=== PATIENT | male | born 1940 | race Caucasian/White ===

== ENCOUNTER → 2017-12-04 11:32 | Outpatient (CLI) | payer MEDICARE, BC, SELFPAY ==
[2017-12-04 12:32] LABS: Add Manual Diff / Slide Review NO; Basophils Percent Auto 1.2 % (0-2); Eosinophils Percent Auto 2.1 % (2-4); Hemoglobin 13.4 g/dL (13.5-17.5); Mean Corpuscular HGB Conc 33.5 % (30-36); Mean Corpuscular Hemoglobin 29.3 PG (26-34); Mean Corpuscular Volume 87.4 fL (80-100); Monocytes Percent Auto 8.1 % (3-14); Neutrophils Absolute Auto 5100 /uL (3000-5900); Neutrophils Percent Auto 57.6 % (50-75); Platelet Count 193 X10^3/uL (150-400); Red Blood Cell Count 4.58 X10^6/uL (4.5-5.9); White Blood Cell Count 8.9 X10^3/uL (4.5-11.0)
[2017-12-04 12:46] LABS: BUN Creatinine Ratio 20.8 (6-22); Blood Urea Nitrogen 27 mg/dL (9-20); Calcium 8.9 mg/dL (8.4-10.2); Carbon Dioxide 30 mmol/L (22-32); Chloride 99 mmol/L (98-107); Estimated Glomerular Filt Rate 53.7 mL/min (>60); Glucose 102 mg/dL (80-110); HEMOLYSIS < 15 (0-50); Sodium 139 mmol/L (137-145)
== END ==
PROVIDERS: PCP Family Medicine; Visit Provider Orthopaedic Surgery Orthopaedic Surgery of the Spine
DX: Z01.818 Encounter for other preprocedural examination (principal); M51.36 Other intervertebral disc degeneration, lumbar region
CPT/HCPCS: 36415; 80048; 85025; 93005

== ENCOUNTER 2017-12-29 10:15 | Inpatient (IN) | payer MEDICARE, BC, SELFPAY ==
[2017-12-16 08:39] VITALS: BMI 30.1
[2017-12-29] VITALS (13 sets, daily range): BP systolic 116–154; BP diastolic 55–87; PULSE 61–107; RESP 8–16; TEMP 35.9–36.7; O2SAT 93–99; BMI 30.7
[2017-12-29] MEDS: LACTATED RINGERS 1,000 ML 42 ML IV ×3 (11:30→15:26)
--- NOTE | 2017-12-29 12:22 | PM.PREOP ---
Pre-operative Note Interval Note Pre-op Check: History & Physical Reviewed by Physician, Exam Performed and History & Physical exam performed today
[2017-12-29] MEDS: CEFAZOLIN 2 GM/100 ML FROZ.PIGGY IV ×2 (12:45→20:38)
--- NOTE | 2017-12-29 13:27 | SUR.OPER ---
Prone on spine table, head in foam head support, padded chest and pelvic supports, gel pad at knees, lower legs supported by pillows; nipples, genitalia and toes free of pressure, arms secured on foam padded arm boards at <90 degrees abduction. Tape over blanket at thigh secured to table.
[2017-12-29] MEDS: BUPIVACAINE LIPOSOME 266 MG/20 ML VIAL INJ (13:33)
[2017-12-29] MEDS: BUPIVACAINE 0.25% W/ EPI 50 ML VIAL INJ (13:35)
[2017-12-29] MEDS: ACETAMINOPHEN IV 1,000 MG/100 ML VIAL 400 MG IV (15:22)
--- NOTE | 2017-12-29 15:58 | DI.RAD.S_ITS ---
PROCEDURE: XR LUMBAR SPINE 2-3V INDICATIONS: L3-4, L4-5 TLIF TECHNIQUE: 2 views of the lumbar spine were acquired. COMPARISON: [facility] ZAHIRA Price, XR LUMBAR SPINE 2 OR 3 VIEWS, 08/14/2017, 10:06. FINDINGS: Bones: 5 [id number] vertebrae are present, previously documented. There is normal bony alignment established after placement of bilateral transvers pedicle screws and vertical fixation rods from L3-L5, with interbody disc prosthesis at L3-4 and L4-5. No vertebral body compression fractures. No suspicious bony lesions. Soft tissues: Overlying bowel gas pattern is normal. No suspicious soft tissue calcifications. IMPRESSION: Normal alignment established after operative fixation from L3-L5 with interbody disc prosthesis placement. Dictated by: Savage Stevenson M.D. on 12/29/2017 at 16:35 Approved by: Savage Stevenson M.D. on 12/29/2017 at 16:37
--- NOTE | 2017-12-29 16:20 | PM.OP.1 ---
Operative Date/Time/Diagnoses - Date of procedure: 12/29/17 Time of procedure: 13:00 Pre-op diagnosis: 1. L3-4, L4-5 spondylolisthesis 2. L3-4, L4-5, L5-S1 spinal stenosis 3. L3-4, L4-5 spondylosis with radiculopathy Post-op diagnosis: same Procedure & Clinicians Procedure: 1. L3-4, L4-5 Postero-lateral and posterior interbody fusion 2. L3-4, L4-5 interbody cage placement. 3. L3-4, L4-5 decompressive laminectomy with bilateral facetecomies 4. L3-4, L4-5 Posterior segmental instrumentation 5. L5-S1 left hemilaminectomy 6. [place] of bone marrow from iliac crest 7. Utilization of microsurgical technique and operating microscope Same procedure as scheduled: Yes Indications: Patient has been having chronic back pain and worsening lumbar radiculopathy. Patient failed multiple conservative management with worsening pain weakness and numbness in her lower extremity. Patient has been having difficulty performing activity of daily living. After discussing risks benefits of treatment options, patient elected proceed with surgery. Surgeon: Claudia Mcdaniels Gear Setter: Lorraine Najera Click Yes if Unassisted: No Anesthesia Type: General Operative Notes Closure Type: primary Specimen(s): none sent Implants & Drains: Globus revolve screws, caliber cage Applied: catheter Estimated Blood Loss (mL): 100 Blood products transfused: none Procedure in detail: Patient was seen in the preoperative area. Risks and benefits of the surgery was discussed with the patient. Informed consent was obtained from the patient and placed in the chart. Surgical site was marked. Patient was taken to the operative room. General anesthesia was administered. Prophylactic antibiotic was given to the patient less than 30 min before the incision was made. Patient was placed into a prone position on the Nabil table. Patient's back was then prepped and draped in the sterile fashion. Time-out was performed at this time. Using AP and lateral C-arm imaging the interval between L3-4, L4-5 was identified and marked on patient's back. A 2 inch incision 2 in from midline was made on the left side first. The fascia was incised in line with skin incision. Globus MARS retractors was placed inside the incision and docked onto the L3and L4 lamina. Using microsurgical technique and operating microscope, a L3 and L4 laminectomy and L3-4, L4-5 facetectomy was performed using a Kerrison rongeur. The disc space at L4-5, L5-S1 was identified. And a total diskectomy was performed at L3-4, L4-51 level. The endplates were decorticated using a rasp and shaver. The total diskectomy and decortication was performed at L3-4, L4-5 level in order to to accomplish a L3-4, L4-5 fusion. The local bone from the laminectomy and facetectomy was saved for local bone grafting. After the total diskectomy and decortication was completed, Globus viacell bone graft material was combined with local bone that was harvested earlier. At this time, a separate skin is incision was made over the iliac crest. A Jamshidi needle was inserted into the iliac crest through a separate skin incision. 5 cc of bone marrow aspiration was obtained through the separate skin incision using a Jamshidi needle from the iliac crest. The bone marrow aspiration was combined with local bone and the via cell bone grafting material. The bone grafting material was placed into the L3-4, L4-5 interbody space along with two cages, one expandable cage at each level. The cages were expanded to their maximum height using the torque limiting screwdriver. The mars retractor at this time was retarded over the L5 lamina on the right side. Using microsurgical technique and operative microscope a hemilaminectomy was performed at L5 level. The ligamentum flavum was resected the site of the hemilaminectomy. The epidural space and the lateral recess at L5-S1 level was fully decompressed after the hemilaminectomy was completed. At this time a mirror image incision was made on the right side. The fascia was incised in line with the skin incision. Globus MARS retractor was inserted and docked onto the L3-4, L4-5 posterolateral gutter. Using the power drill, posterior-lateral decortication was performed at L3-4, L4-5 level until bleeding cortical bone was identified. The remaining bone grafting material was placed into the L3-4, L4-5 posterior lateral gutter he order to accomplish posterolateral fusion at the L3-4, L4-5 levels. Using the double C-arm technique, pedicle screws were placed into the L3, L4, L5 pedicles bilaterally. This was done by placing the Jamshidi needle into the pedicles, then placing the guidewires over the Jamshidi needle, and finally placing the cannulated screws over the guidewires bilaterally. After the pedicle screws were placed, 2 titanium rods was locked into the heads of the pedicle screws using locking caps and torque limiting screwdriver. Total 6 pedicles screws were placed. After all the hardware was placed, and confirmed with AP and lateral C-arm imaging, the wound was then irrigated with sterile normal saline and packed with Ray-Roberto Carlos gauze for 3 min to accomplish hemostasis. After the gauze was removed the deep fascia was closed with #1 Vicryl suture. The subcutaneous layer was closed with 2-0 Vicryl. The skin was closed with skin loren. Patient tolerated the procedure well. There were no complications. Complications: none Condition: stable Disposition: Acute Care Plan for aftercare: Admit to inpatient hospital
[2017-12-29] MEDS: fentaNYL 100 MCG/2 ML INJ 50 MCG IV ×2 (16:36→16:52)
[2017-12-29] MEDS: HYDROMORPHONE 2 MG INJ 0.5 MG IV ×2 (16:42→17:04)
--- NOTE | 2017-12-29 17:13 | SUR.PHASEI ---
REPORT CALLED TO NOELLE MARTELL ON ACUTE CARE FLOOR. PT IN STABLE CONDITION, VSS. IV SITE CLEAR. PT HAS EQUAL STRENGTH IN ALL FOUR EXTREMITIES, WARM TO TOUCH, +PULSES, CAP REFILL WNL. PT DENIES ANY NUMBNESS OR TINGLING AT THIS TIME. CATHETER SECURE AND DRAINING CLEAR YELLOW URINE. PT TOLERATING ICE CHIPS WITHOUT ANY DIFFICULTLY. PT DENIES ANY NAUSEA. PT LAYING FLAT IN BED WITH EYES CLOSED, EASILY AROUSABLE TO VOICE. PT APPEARS COMFORTABLE AT THIS TIME.
--- NOTE | 2017-12-29 17:30 | SUR.PHASEI ---
PT TRANSFERED TO ACUTE CARE FLOOR IN STABLE CONDITION, VSS. PT TALKING TO STAFF DURING TRANSPORT. AT BEDSIDE UPON ARRIVAL TO ROOM. BEDSIDE REPORT GIVEN TO NOELLE MARTELL. DRSG OBSERVED TO BE C/D/I. PT TRANSFERED TO [facility], IN STABLE CONDITION.
[2017-12-29] MEDS: SODIUM CHLORIDE 0.9% 1,000 ML 100 ML IV (18:25)
[2017-12-29] MEDS: hydrOXYzine pamoate 25 MG CAPSULE PO (19:05)
[2017-12-29] MEDS: OXYCODONE IR 5 MG TABLET 10 MG PO (19:05)
[2017-12-29] MEDS: ONDANSETRON 4 MG/2 ML INJ IV (20:36)
[2017-12-29] MEDS: HYDROMORPHONE 0.5 MG INJ IV ×2 (20:42→23:44)
[2017-12-30] MEDS: LORazepam 2 MG/ML SYRINGE 0.5 MG IV (00:46)
[2017-12-30] MEDS: HYDROMORPHONE 0.5 MG INJ IV ×3 (02:43→07:35)
[2017-12-30] MEDS: ONDANSETRON 4 MG/2 ML INJ IV ×2 (02:44→06:24)
[2017-12-30] MEDS: CEFAZOLIN 2 GM/100 ML FROZ.PIGGY IV (04:09)
[2017-12-30] MEDS: SODIUM CHLORIDE 0.9% 1,000 ML 100 ML IV (04:09)
[2017-12-30 04:10] VITALS: BP 119/67; PULSE 83; RESP 12; TEMP 36.7; O2SAT 100
[2017-12-30 06:12] LABS: Hematocrit 33.5 % (41-53); Hemoglobin 11.1 g/dL (13.5-17.5)
[2017-12-30 07:20] VITALS: BP 115/58; PULSE 71; RESP 17; TEMP 36.6; O2SAT 99
[2017-12-30] MEDS: DOCUSATE 100 MG CAPSULE PO ×2 (09:20→20:16)
[2017-12-30] MEDS: OXYCODONE IR 5 MG TABLET 10 MG PO ×4 (09:20→20:16)
[2017-12-30] MEDS: hydrOXYzine pamoate 25 MG CAPSULE PO (09:20)
[2017-12-30] MEDS: ACETAMINOPHEN 325 MG TABLET 650 MG PO ×2 (09:22→15:20)
--- NOTE | 2017-12-30 09:22 | P.PN_ITS ---
Subjective Date Patient Seen: 12/30/17 Time Patient Seen: 07:21 Interval history: POD #1 status post L3-L5 TLIF, and L5-S1 left hemilaminectomy. Patient's pain is well controlled with oxycodone. He has not gotten up out of bed yet. He has not worked with physical therapy yet. He has notes a history of prostate issues and is taking Flomax 0.4 mg daily. Still has Da Silva in place. Did have some nausea and vomiting last night that was alleviated with Zofran. Exam Vital Signs (past 8 hours): - 12/30/17 04:10 12/30/17 07:20 Temperature 98.1 F 97.9 F Pulse Rate 83 71 Respiratory Rate 12 17 Blood Pressure 119/67 115/58 L Pulse Oximetry 100 99 Oxygen Delivery Method Nasal Cannula Oxygen Flow Rate 1 Narrative Exam Narrative: Patient is sitting up in bed in no acute distress. Is alert and oriented x3. Calves are soft, compressible, nontender bilaterally. Pulses are symmetrical. He is able to actively dorsiflex and plantar flex. Objective Labs Result Diagrams: 12/30/17 05:59 Labs: Laboratory Results - last 24 hr 12/30/17 05:59 Hgb 11.1 L Hct 33.5 L Assessment & Plan Post-op (1) S/P lumbar fusion: Current Visit: Yes Status: Acute (2) Benign prostatic hyperplasia: Onset Date: 03/05/16 Current Visit: No Status: None (3) Essential hypertension: Onset Date: 09/26/17 Current Visit: No Status: None Postoperative Procedures Operation Date: 12/29/17 12:15 Actual Procedures Side Surgeon p L3-4 Right Hemilaminectomy, L3-4, L4-5 TLIF w/Posterior Instru Claudia Mcdaniels MD POD #1 status post L3-L5 TLIF, and L5-S1 left hemilaminectomy. Continue current pain control. Will get up and mobilize with physical therapy today. Once more active and mobile will DC Da Silva. Plan will be to discharge home in next 1-2 days once mobilizing safely with adequate pain control. Time Spent With Patient less than 15 minutes Quality VTE Deep Vein Thrombosis/Pulmonary Embolism Present on Admission: No
--- NOTE | 2017-12-30 09:30 | PT.IIE ---
Current Diagnoses Essential (primary) hypertension (12/29/17) Other spondylosis with radiculopathy, lumbar region (12/29/17) Benign prostatic hyperplasia without lower urinary tract symptoms (12/29/17) Arthrodesis status (12/29/17) Surgery Performed Operation Date: 12/29/17 12:15 Actual Procedures p L3-4 Right Hemilaminectomy, L3-4, L4-5 TLIF w/Posterior Angie Mcdaniels MD Surgical History (Last Updated 12/16/17 @ 09:30 by Ariana Meyers RN) History of corneal transplant (Acute) History of ear surgery (Acute) Hx of appendectomy (Acute) Hx of arthroscopy of shoulder (Acute) Hx of bilateral inguinal hernia repair (Acute) Hx of tonsillectomy (Acute) Medical History (Last Updated 12/16/17 @ 09:30 by Ariana Meyers RN) Eczema (Acute) HTN (hypertension) (Acute) LBBB (left bundle branch block) (Acute) Nocturia (Acute) 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, lumbar region (Acute) RBBB (right bundle branch block) (Acute) Spinal stenosis of lumbar region (Acute) Physical Therapy Inpatient Evaluation/Re-Eval M1 PT/OT-IP Prior Functional Status Start: 12/30/17 12:35 Freq: NEEDED Status: Active Protocol: Document 12/30/17 09:30 AB (Rec: 12/30/17 12:46 AB [email or web address]) Medical Review Prior Functional Status Medical History Reviewed Yes Mobility and Gait pt stated that he is independent with all mobilities and ambulation without AD Social History Household Members spouse Living Arrangements House Number of Floors (Floors) 3 or More Floors Number of Stairs To Enter/Railing? has 6 steps to enter with R rail ascending; pt stays on main level of the house Home Environment Standard Height Toilet Walk in Shower Home Equipment Front Wheel Walker Straight Cane Grab Bars Near Toilet Grab Bars In Shower Employment Status Retired M2 PT-IP Current Condition Start: 12/30/17 12:35 Freq: NEEDED Status: Active Protocol: Document 12/30/17 09:30 AB (Rec: 12/30/17 12:46 AB [email or web address]) Physical Therapy Current Condition Current Condition Evaluation Date 12/30/17 Treatment Diagnosis s/p L3-4, L4-5 TLIF with lami; difficulties in walking Onset Date 12/29/17 Precautions Lumbar Precautions Log Roll No Twisting Limit Bending Lifting Restriction of 10 lbs Gait Belt above Incisional Area M3 PT-IP Subjective Start: 12/30/17 12:35 Freq: NEEDED Status: Active Protocol: Document 12/30/17 09:30 AB (Rec: 12/30/17 12:46 AB [email or web address]) Subjective Physical Therapy Visit Type Type Initial Evaluation Visit Start Time 09:30 Visit Stop Time 10:03 Total Visit Minutes 33 Number of FIRER DIESEL LOCOMOTIVE Visits 0 Physical Therapy Visit Comments Patient Comments pt agreeable to do therapy Therapy Pain Assessment Pain When Pain Assessed At Rest Pain Present Pain Present Pain Reported Location Back Intensity 5 Scale Used Numeric (1 - 10) Pain Management Techniques Re-positioning Timing of Activity with Medications M4 PT-IP Mobility and Gait Start: 12/30/17 12:35 Freq: NEEDED Status: Active Protocol: Document 12/30/17 09:30 AB (Rec: 12/30/17 12:46 AB [email or web address]) PT-Bed Mobility Assessment Rolling Type of Rolling Log Rolling Level of Assist Standby Assistance Supine to Sit Supine to Sit Standby Assistance Scooting Scooting to Edge of Bed Standby Assistance PT-Transfer Assessment Sit to and From Stand Sit to and from Stand Contact Guard Assistance Equipment Transfer Assistive Device Gait Belt Front Wheeled Walker Transfers Transfer Destination Chair Gait Assessment Gait Gait Assistance Required: Contact Guard Assist Distance (Feet) (feet) 30 Able to Maintain Weight Bearing Status Yes During Gait Assistive Devices Assistive Device Gait Belt Orthotic/Prosthetic Devices or Brace: No Gait Deviations General Gait Pattern Antalgic Decreased Stride Length Decreased Feet Clearance Factors Limiting Gait Function Factors Limiting Gait Function Decreased Activity Tolerance Decreased Strength Limited Range of Motion Pain Poor Balance Poor Safety Awareness Comments Gait Comments pt requires cues for all tasks M5 PT-IP Objective Assessments Start: 12/30/17 12:35 Freq: NEEDED Status: Active Protocol: Document 12/30/17 09:30 AB (Rec: 12/30/17 12:46 AB [email or web address]) Orientation Orientation/Cognition Level of Alertness Alert Orientation Name Age Birthday Month Date Year Day of Week Place Situation Safety Awareness Decreased Safety Awareness Memory Description Short Term Impaired Roofer Applicator Impaired Strength Lower Extremity Strength Assessment Bilaterally Impaired Comments Strength Comments RLE: 3+/5 LLE 4-/5 M6 PT-IP Treatment Start: 12/30/17 12:35 Freq: NEEDED Status: Active Protocol: Document 12/30/17 09:30 AB (Rec: 12/30/17 12:46 AB [email or web address]) Physical Therapy Treatment Education Education Provided Precautions Weight Bearing Status Post-Op Packet Safety M7 PT-IP Assessment and Plan Start: 12/30/17 12:35 Freq: NEEDED Status: Active Protocol: Document 12/30/17 09:30 AB (Rec: 12/30/17 12:46 AB [email or web address]) PT Summary Assessment and Plan Potential Rehabilitation Potential Good Status of Condition at Evaluation Evolving Summary Impairments Pain ROM Strength Balance Sensation Tone Cognition Bed Mobility Transfers Gait Activity Tolerance Assessment Summary pt requiring one person assist with mobility but plans to have spouse to assist him at home. will conduct caregiver training when appropriate and stair climbing training will also be conducted prior to d/c . Goals Bed Mobility Goal Standby Assistance Transfer Goal Standby Assistance Gait Goal Standby Assistance Gait Distance 150 Days to Meet Goals 3 Frequency of Treatment Frequency Of Treatment Twice a Day Treatment Plan Physical Therapy Treatment Plan Bed Mobility Training Transfer Training Gait Training Therapeutic Exercise Balance Retraining Post Op Education Discharge Planning Hot or Cold Pack Neuromuscular Re-ed Coordination Retraining Manual Therapy Other Recommendations and Next Treatment bed mobility, ambulation Focus Recommendations To Nursing Amount of Assist Needed 1 Person Assist Discharge Recommendations PT Discharge Recommendations Home with Assistance
--- NOTE | 2017-12-30 10:40 | PC.NURSE ---
Day shift: OOB w/ OT. Hardest part of that was getting OOB. Pain controlled w/ PO meds now per AUG. He did not want any IV Dilaudid for pain 10/07. He also does not want the Da Silva removed yet. Sitting in chair with alarm. He agrees to not get OOB w/o help from staff. Call light in reach.
[2017-12-30 11:15] VITALS: BP 139/70; PULSE 89; RESP 18; TEMP 36.7; O2SAT 98
--- NOTE | 2017-12-30 11:26 | PC.NURSE ---
Day shift: Pt eating cookie and drinking milk. Tolerating well. No report of nausea. Pt did take PO pain meds this AM as well. Pt did have nausea and emesis last night but not present today at this time. Call light in reach.
--- NOTE | 2017-12-30 12:49 | PC.NURSE ---
Day shift; Da Silva removed at 1245. Pt is now SL. Advanced to reg diet for dinner. No nausea at this time. Pain controlled per AUG. Pt also ambulated karlaung Ashish RN station w/ this health technical writer and tolerated well. Spo2 remains >95% RA. Will cont to monitor. Back in bed. Bed alarm on and call light in reach.
--- NOTE | 2017-12-30 13:01 | OT.IP.EVAL ---
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, lumbar region (Acute) RBBB (right bundle branch block) (Acute) Spinal stenosis of lumbar region (Acute) Surgical History (Last Updated 12/16/17 @ 09:30 by Ariana Meyers RN) History of corneal transplant (Acute) History of ear surgery (Acute) Hx of appendectomy (Acute) Hx of arthroscopy of shoulder (Acute) Hx of bilateral inguinal hernia repair (Acute) Hx of tonsillectomy (Acute) Occupational Therapy Inpatient Evaluation/Re-Eval M1 PT/OT-IP Prior Functional Status Start: 12/30/17 12:35 Freq: NEEDED Status: Active Protocol: Document 12/30/17 09:30 AB (Rec: 12/30/17 12:46 AB [id number]) Medical Review Prior Functional Status Medical History Reviewed Yes Mobility and Gait pt stated that he is independent with all mobilities and ambulation without AD Social History Household Members spouse Living Arrangements House Number of Floors (Floors) 3 or More Floors Number of Stairs To Enter/Railing? has 6 steps to enter with R rail ascending; pt stays on main level of the house Home Environment Standard Height Toilet Walk in Shower Home Equipment Front Wheel Walker Straight Cane Grab Bars Near Toilet Grab Bars In Shower Employment Status Retired M1 PT/OT-IP Prior Functional Status Start: 12/30/17 12:36 Freq: NEEDED Status: Active Protocol: Document 12/30/17 12:36 [facility] (Rec: 12/30/17 13:01 [facility] [id number]) Medical Review Prior Functional Status Medical History Reviewed Yes Diet/Fluid Consistency Regular Thin Liquids Mobility and Gait Per pt was completely independent with all ambulation and did not use any devices. Activities of Daily Living and IADL's Pt's pays the bills, otherwise was completely independent. Social History Household Members spouse Living Arrangements House Number of Floors (Floors) 3 or More Floors Number of Stairs To Enter/Railing? 6 and right hand rail. Home Environment Standard Height Toilet Walk in Shower Home Equipment Front Wheel Walker Straight Cane Shower Seat without Backrest Grab Bars Near Toilet Grab Bars In Shower Employment Status Retired Additional Social History Comment Pt able to stay on the main level after getting into the house. M2 OT-IP Current Condition Start: 12/30/17 12:36 Freq: Status: Active Protocol: Document 12/30/17 12:36 [facility] (Rec: 12/30/17 13:01 [facility] [id number]) Occupational Therapy Current Condition Current Condition Evaluation Date 12/30/17 Treatment Diagnosis Lumbar Spinal Stenosis Post Operative Precautions Lumbar Precautions Log Roll No Twisting Limit Bending Lifting Restriction of 10 lbs Gait Belt above Incisional Area Weight Bearing Status Weight Bearing Status Weight Bear as Tolerated M3 OT- IP Subjective and Pain Start: 12/30/17 12:36 Freq: Status: Active Protocol: Document 12/30/17 12:36 [facility] (Rec: 12/30/17 13:01 [facility] [id number]) OT- Subjective Occupational Therapy Visit Type Type Initial Evaluation Visit Start Time 09:30 Visit Stop Time 10:25 Total Visit Minutes 55 Occupational Therapy Visit Comments Patient/Caregiver Goals Pt wanting to go home when medically stable. OT Pain Assessment Pain When Pain Assessed At Rest Pain Present Pain Present Pain Reported Location Back Intensity 6 Scale Used Numeric (1 - 10) Management Techniques Re-positioning Timing of Activity with Medications M4 OT- IP ADL's Start: 12/30/17 12:36 Freq: Status: Active Protocol: Document 12/30/17 12:36 [facility] (Rec: 12/30/17 13:01 [facility] [id number]) OT AQM-[place]jam[place] General Evaluation Self-Feeding Ability Independent OT ADL-Dressing General Eval Lower Body Dressing Ability Maximum Assistance Areas Needing Assistance Socks Comments OT Dressing Comments Pt educated on AED for LB dressing , use of sock aid to minerva/doff socks with instructions. Instructed pt to use optical engineering manager to minerva right LLE first and get it out last as he has more trouble with his right side. OT ADL-Toileting Comments OT Toileting Comments Educated to stand to wipe for pericare needs. Pt has grab bar next to the toilet. OT ADL-Bathing Comments OT Bathing Comments Not at this time, to attempt tomorrow if appropriate. M6 OT- IP Functional Cognition Start: 12/30/17 12:36 Freq: Status: Active Protocol: Document 12/30/17 12:36 [facility] (Rec: 12/30/17 13:01 [facility] [id number]) Cognitive Factors Limiting Selfcare Function Cognitive Ability Level of Alertness Alert Confusional State Drowsy Patient Orientation Name Year Place Situation Attention Span Ability Capable of Focused Attention Unable to Sustain Attention Ability to Follow Commands Able to Follow One Step Commands with Increased Time Able to Follow One Step Commands with Repetition Memory Description Immediate Impaired Short Term Impaired Safety Awareness Decreased Recall of Precautions Decreased Ability to Apply Precautions Underestimates Need for Assistance Cognitive Comments Cognitive Assessment Comments Pt having diffculty to recall back precautions and needing repetition over and over, in addition visual demonstration. At the end of the session , pt able to recall all back precautions. M7 OT- IP Mobility and Balance Start: 12/30/17 12:36 Freq: Status: Active Protocol: Document 12/30/17 12:36 [facility] (Rec: 12/30/17 13:01 [facility] [id number]) OT- Bed Mobility Assessment Rolling Type of Rolling Roll to Right Supine to Sit Supine to Sit Assist Contact Guard Assistance OT-Transfer Assessment Sit to and From Stand Sit to and from Stand Contact Guard Assistance Transfers Transfer Ability Contact Guard Assistance Technique Transfer Destination Bed Chair Transfer Technique Stand Step Pivot Devices Transfer Assistive Devices Gait Belt Front Wheeled Walker Comments Mobility Comments CGA for balance and vc for safety to push up from bed and reach back with hands to armrests before sitting. OT- Balance Assessment Sitting Balance and Reactions Static Sitting Balance Ability Normal Dynamic Sitting Balance Ability Normal Standing Balance and Reactions Static Standing Balance Ability Good M8 OT- IP Objective Assessments Start: 12/30/17 12:36 Freq: Status: Active Protocol: Document 12/30/17 12:36 [facility] (Rec: 12/30/17 13:01 [facility] [id number]) OT Strength Comments Strength Comments BUE 5/5 OT-Muscle Tone Assessment Muscle Tone WNL Yes M9 OT- IP Assessment and Plan Start: 12/30/17 12:36 Freq: Status: Active Protocol: Document 12/30/17 12:36 [facility] (Rec: 12/30/17 13:01 [facility] [id number]) OT Summary Assessment and Plan Potential Rehabilitation Potential Excellent Analytic Complexity at Evaluation Low Summary OT Impairments Pain Balance Functional Cognition Functional Mobility Dressing Toileting Bathing Toilet Transfers Shower Transfers Progress Towards Goals Slow Progress due to Pain Slow Progress due to Cognition Assessment Summary Pt low complexity and main barriers are steps, decreased STM, and that will not be able to do any heavy lifting. Pt looking to go home when medically stable. Goals Grooming Goal Independent Dressing Goal Standby Assistance Toileting Goal Independent Bathing Goal Standby Assistance Toilet Transfer Goal Independent Shower Transfer Goal Standby Assistance Patient/Caregiver Education Goal Demonstrate Post-Op Precautions Caregiver Independent Assisting Patient Days to Meet Goals 3 Frequency of Treatment Frequency Of Treatment Once a Day Treatment Plan OT Treatment Plan ADL Training Functional Cognition Training Functional Mobility Patient/Family Education Discharge Planning Discharge Recommendations OT Discharge Recommendations Home
--- NOTE | 2017-12-30 13:29 | CM.DANOTE ---
Discharge Planning/Care Management DCP: assessment: Case received, EMR reviewed and met with pt this morning. Introduced self and role. Pt is a 77 year old female who admitted yesterday for a planned spinal surgery. Surgeon: Dr. Mcdaniels Payer: Medicare and [facility]. Discussed case in [facility] team rounds: RN coordinator noted that pt was on bedrest initially due to dural tear. Is now ok'd to be up. Pt is working with PT and have noted him mobilizing in [facility]. Pt states he plans to go home with his 's support when stable for same. She will pick him up. P: Follow prn for any d/c needs that may arise. CM Discharge Assessment Start: 12/30/17 13:17 Freq: Status: Active Protocol: Document 12/30/17 13:18 ITV (Rec: 12/30/17 13:24 ITV [id number]) Discharge Planning Assessment History Provided By Patient Medical Record Prior Living Arrangements House Household Members spouse Type of transporation used prior to Drives own vehicle admit Independent with ADL's Yes Is patient alert and oriented? Yes Caregiver for Another No DME Already Rented / Owned FWW / Walker Cane Comment has dme. was not using prior to surgery Discharge Plan Home Transportation Arrangement will pick him up and provide supportive assist at home Review Status In Process Next Review Type Continued Stay Review Document 12/30/17 13:25 ITV (Rec: 12/30/17 13:28 ITV [id number]) Discharge Planning Assessment History Provided By Patient Medical Record Prior Living Arrangements House Household Members spouse Type of transporation used prior to Drives own vehicle admit Independent with ADL's Yes Is patient alert and oriented? Yes Caregiver for Another No DME Already Rented / Owned FWW / Walker Cane Comment has dme. was not using prior to surgery Discharge Plan Home Transportation Arrangement will pick him up and provide supportive assist at home Review Status In Process Next Review Type Continued Stay Review
--- NOTE | 2017-12-30 15:13 | PT.IPTN ---
Current Diagnoses Essential (primary) hypertension (12/29/17) Other spondylosis with radiculopathy, lumbar region (12/29/17) Benign prostatic hyperplasia without lower urinary tract symptoms (12/29/17) Arthrodesis status (12/29/17) Surgery Performed Operation Date: 12/29/17 12:15 Actual Procedures p L3-4 Right Hemilaminectomy, L3-4, L4-5 TLIF w/Posterior Angie Mcdaniels MD Physical Therapy Treatment Note M2 PT-IP Current Condition Start: 12/30/17 12:35 Freq: NEEDED Status: Active Protocol: Document 12/30/17 09:30 AB (Rec: 12/30/17 12:46 AB [email or web address]) Physical Therapy Current Condition Current Condition Evaluation Date 12/30/17 Treatment Diagnosis s/p L3-4, L4-5 TLIF with lami; difficulties in walking Onset Date 12/29/17 Precautions Lumbar Precautions Log Roll No Twisting Limit Bending Lifting Restriction of 10 lbs Gait Belt above Incisional Area M3 PT-IP Subjective Start: 12/30/17 12:35 Freq: NEEDED Status: Active Protocol: Document 12/30/17 15:13 AB (Rec: 12/30/17 16:19 AB [id number]) Subjective Physical Therapy Visit Type Type Treatment Note Visit Start Time 14:43 Visit Stop Time 15:13 Total Visit Minutes 30 Number of TIME CLOCK MECHANIC Visits 0 Physical Therapy Visit Comments Patient Comments pt agreeable to do therapy Therapy Pain Assessment Pain When Pain Assessed At Rest Pain Present Pain Present Pain Reported Location Back Intensity 8 Scale Used Numeric (1 - 10) Pain Management Techniques Re-positioning Timing of Activity with Medications M4 PT-IP Mobility and Gait Start: 12/30/17 12:35 Freq: NEEDED Status: Active Protocol: Document 12/30/17 15:13 AB (Rec: 12/30/17 16:19 AB [id number]) PT-Bed Mobility Assessment Supine to Sit Supine to Sit Standby Assistance Sit to Supine Sit to Supine Standby Assistance Scooting Scooting to Edge of Bed Standby Assistance PT-Transfer Assessment Sit to and From Stand Sit to and from Stand Contact Guard Assistance Equipment Transfer Assistive Device Gait Belt Front Wheeled Walker Transfers Transfer Destination Toilet Transfer Technique pt ambulated towards the toilet Transfer Ability Level of Assist Contact Guard Assistance Comments Mobility Comments pt requires cues for log roll bed mobility and for safety Gait Assessment Gait Gait Assistance Required: Standby Assistance Contact Guard Assist Distance (Feet) (feet) 225 Able to Maintain Weight Bearing Status Yes During Gait Assistive Devices Assistive Device Gait Belt Front Wheeled Walker Orthotic/Prosthetic Devices or Brace: No Gait Deviations General Gait Pattern Decreased Stride Length Decreased Feet Clearance Factors Limiting Gait Function Factors Limiting Gait Function Decreased Activity Tolerance Decreased Strength Pain Poor Balance Poor Safety Awareness M5 PT-IP Objective Assessments Start: 12/30/17 12:35 Freq: NEEDED Status: Active Protocol: Document 12/30/17 09:30 AB (Rec: 12/30/17 12:46 AB [id number]) Orientation Orientation/Cognition Level of Alertness Alert Orientation Name Age Birthday Month Date Year Day of Week Place Situation Safety Awareness Decreased Safety Awareness Memory Description Short Term Impaired Senior Care Impaired Strength Lower Extremity Strength Assessment Bilaterally Impaired Comments Strength Comments RLE: 3+/5 LLE 4-/5 M6 PT-IP Treatment Start: 12/30/17 12:35 Freq: NEEDED Status: Active Protocol: Document 12/30/17 15:13 AB (Rec: 12/30/17 16:19 AB [id number]) Physical Therapy Treatment Education Education Provided Precautions Weight Bearing Status Post-Op Packet Safety M7 PT-IP Assessment and Plan Start: 12/30/17 12:35 Freq: NEEDED Status: Active Protocol: Document 12/30/17 15:13 AB (Rec: 12/30/17 16:19 AB [id number]) PT Summary Assessment and Plan Potential Rehabilitation Potential Good Summary Impairments Pain ROM Strength Balance Cognition Bed Mobility Transfers Gait Activity Tolerance Progress Towards Goals Progressing Toward Goals Assessment Summary pt requiring on erson assist with mobility and cues for safety. stair climbing will be conducted prior to d/c. Goals Bed Mobility Goal Standby Assistance Transfer Goal Standby Assistance Front Wheeled Walker Gait Goal Standby Assistance Four Wheel Walker Gait Distance 200 Days to Meet Goals 3 Frequency of Treatment Frequency Of Treatment Twice a Day Treatment Plan Physical Therapy Treatment Plan Bed Mobility Training Transfer Training Gait Training Therapeutic Exercise Balance Retraining Post Op Education Discharge Planning Hot or Cold Pack Neuromuscular Re-ed Coordination Retraining Manual Therapy Other Recommendations and Next Treatment bed mobility, ambulation, Focus stair climbing Recommendations To Nursing Amount of Assist Needed 1 Person Assist Discharge Recommendations PT Discharge Recommendations Home with Assistance
[2017-12-30 15:32] VITALS: BP 153/74; PULSE 77; RESP 20; TEMP 36.7; O2SAT 95
[2017-12-30 19:30] VITALS: BP 151/80; PULSE 90; RESP 20; TEMP 36.8; O2SAT 97
[2017-12-30] MEDS: SENNOSIDES 8.6 MG TABLET 17.2 MG PO (20:16)
[2017-12-31] VITALS (13 sets, daily range): BP systolic 113–148; BP diastolic 64–85; PULSE 84–100; RESP 16–20; TEMP 36.6–37.9; O2SAT 88–98
[2017-12-31] MEDS: OXYCODONE IR 5 MG TABLET 10 MG PO ×5 (00:49→19:54)
--- NOTE | 2017-12-31 06:54 | PC.NURSE ---
[employer]ship- Pt had 1 episode of confusion at 0020, pt attempted OOB indep setting bed alarm off. Pt states he thought he was at home. No further confusion throughout night. O2 sat 88-91% on RA, 1L NC placed at 0030. And placed on continuous O2 monitoring. O2 sat 92-94%. O2 NC removed this AM after getting into chair at bedside. O2 92% on RA. Lower back dressing CDI, CMS+, PPP. Oxycodone po prn given X2 for 4-6/10 constant aching to surgical site. Pt did not wake up during night asking for pain med, Sitting in chair this AM and upon checking in, pain meds offered and pt agreed, enc pt to let staff know when needing prn pain meds. No other voiced concerns. Call light within reach.
--- NOTE | 2017-12-31 08:28 | PM.PN.1 ---
Subjective Date Patient Seen: 12/31/17 Time Patient Seen: 08:29 Interval history: Hema notes that he is doing a little better. He denies headaches. He notes moderate ongoing back pain but is not having radicular symptoms. He has been up ambulating some with physical therapy but notes that he does require some assistance. He has had his catheter discontinued and he is able to void but notes that it is somewhat slow at secondary to his chronic prostate issues. Exam Vital Signs (past 8 hours): - 12/31/17 00:30 12/31/17 00:32 12/31/17 02:07 Temperature Pulse Rate 84 Respiratory Rate Blood Pressure Pulse Oximetry 88 L 94 93 12/31/17 03:24 12/31/17 04:25 12/31/17 04:51 Temperature 99.0 F Pulse Rate 91 H 89 99 H Respiratory Rate 16 Blood Pressure 131/77 H Pulse Oximetry 92 93 96 12/31/17 06:52 Temperature Pulse Rate Respiratory Rate Blood Pressure Pulse Oximetry 92 Oxygen Delivery Method Nasal Cannula Oxygen Flow Rate 0 Narrative Exam Narrative: His dressing is dry, his back is benign, bilateral calfs are soft he is able to fire his toe flexors and extensors tibialis anterior gastrocsoleus without difficulty on mild guarding with active straight leg raise bilaterally without radicular leg symptoms sensations intact, abdomen is somewhat obese but benign Objective Labs Result Diagrams: 12/30/17 05:59 Assessment & Plan Plan: Assessment/Plan Narrative: Improving status post a lumbar decompression. No headaches with a history of previous dural tear. Plan continue to ambulate with physical therapy in the [facility] and nursing anticipate discharge to home tomorrow. Quality VTE Deep Vein Thrombosis/Pulmonary Embolism Present on Admission: No
[2017-12-31] MEDS: hydroCHLOROthiazide 12.5 MG CAPSULE PO (09:52)
[2017-12-31] MEDS: LOSARTAN 50 MG TABLET PO (09:52)
[2017-12-31] MEDS: TAMSULOSIN 0.4 MG CAPSULE PO (09:52)
[2017-12-31] MEDS: DOCUSATE 100 MG CAPSULE PO ×2 (09:52→19:56)
--- NOTE | 2017-12-31 11:47 | OT.IP.TRT ---
Current Diagnoses Essential (primary) hypertension (12/29/17) Other spondylosis with radiculopathy, lumbar region (12/29/17) Benign prostatic hyperplasia without lower urinary tract symptoms (12/29/17) Arthrodesis status (12/29/17) Surgery Performed Operation Date: 12/29/17 12:15 Actual Procedures p L3-4 Right Hemilaminectomy, L3-4, L4-5 TLIF w/Posterior Angie - Claudia Mcdaniels MD Occupational Therapy Treatment Note M2 OT-IP Current Condition Start: 12/30/17 12:36 Freq: Status: Active Protocol: Document 12/30/17 12:36 [facility] (Rec: 12/30/17 13:01 [facility] [id number]) Occupational Therapy Current Condition Current Condition Evaluation Date 12/30/17 Treatment Diagnosis Lumbar Spinal Stenosis Post Operative Precautions Lumbar Precautions Log Roll No Twisting Limit Bending Lifting Restriction of 10 lbs Gait Belt above Incisional Area Weight Bearing Status Weight Bearing Status Weight Bear as Tolerated M3 OT- IP Subjective and Pain Start: 12/30/17 12:36 Freq: Status: Active Protocol: Document 12/31/17 11:27 [facility] (Rec: 12/31/17 11:47 [facility] [id number]) OT- Subjective Occupational Therapy Visit Type Type Treatment Note Visit Start Time 10:55 Visit Stop Time 11:25 Total Visit Minutes 30 Occupational Therapy Visit Comments Patient Comments Pt not feeling ready to go home today. OT Pain Assessment Pain When Pain Assessed At Rest Pain Present Pain Present Pain Reported M4 OT- IP ADL's Start: 12/30/17 12:36 Freq: Status: Active Protocol: Document 12/31/17 11:27 [facility] (Rec: 12/31/17 11:47 [facility] [id number]) OT ADL-Grooming General Evaluation Grooming Ability Standby Assistance Areas Needing Assistance Retrieving/Set-up of Grooming Items Comments OT Grooming Comments SBA and retrieval of items and vc to keep FWW in front of him. OT ADL-Dressing Comments OT Dressing Comments Pt issued AED for LB dressing and not wanting to shower at this time. OT ADL-Toileting General Evaluation Toileting Ability Standby Assistance Devices Toileting Assistive Devices Grab Bars Comments OT Toileting Comments Pt able to sit to toilet to urinate, encourage pt to get BSC or use of urinal at night as pt uses the bathroom often at night. OT ADL-Bathing Comments OT Bathing Comments Pt not wanting to shower today and maybe tomorrow. M6 OT- IP Functional Cognition Start: 12/30/17 12:36 Freq: Status: Active Protocol: Document 12/31/17 11:27 [facility] (Rec: 12/31/17 11:47 [facility] [id number]) Cognitive Factors Limiting Selfcare Function Cognitive Ability Level of Alertness Alert Patient Orientation Name Year Place Situation Attention Span Ability Capable of Focused Attention Unable to Sustain Attention Ability to Follow Commands Able to Follow One Step Commands with Increased Time Able to Follow One Step Commands with Repetition Memory Description Immediate Intact Short Term Impaired Safety Awareness Decreased Ability to Apply Precautions Underestimates Need for Assistance Cognitive Comments Cognitive Assessment Comments Pt now needing increased time to refall back precautions and having to educate pt's for needs. M7 OT- IP Mobility and Balance Start: 12/30/17 12:36 Freq: Status: Active Protocol: Document 12/31/17 11:27 [facility] (Rec: 12/31/17 11:47 [facility] [id number]) OT- Bed Mobility Assessment Rolling Type of Rolling Roll to Right Roll to Left Level of Assistance Bedrails Supine to Sit Supine to Sit Assist Minimal Assistance Moderate Assistance Sit to Supine Sit to Supine Assist Minimal Assistance Moderate Assistance OT-Transfer Assessment Sit to and From Stand Sit to and from Stand Contact Guard Assistance Transfers Transfer Ability Contact Guard Assistance Technique Transfer Destination Bed Chair Toilet Transfer Technique Stand Step Pivot Devices Transfer Assistive Devices Gait Belt Front Wheeled Walker Comments Mobility Comments Pt needing assist for trunk and BLE for bed mobility and may benefit from OT- Balance Assessment Sitting Balance and Reactions Static Sitting Balance Ability Normal Dynamic Sitting Balance Ability Normal Standing Balance and Reactions Static Standing Balance Ability Good M8 OT- IP Objective Assessments Start: 12/30/17 12:36 Freq: Status: Active Protocol: Document 12/31/17 11:27 [facility] (Rec: 12/31/17 11:47 [facility] [id number]) OT Strength Comments Strength Comments BUE 5/5 M9 OT- IP Assessment and Plan Start: 12/30/17 12:36 Freq: Status: Active Protocol: Document 12/31/17 11:27 [facility] (Rec: 12/31/17 11:47 [facility] [id number]) OT Summary Assessment and Plan Potential Rehabilitation Potential Good Summary OT Impairments Pain Balance Functional Cognition Functional Mobility Dressing Toileting Bathing Toilet Transfers Shower Transfers Progress Towards Goals Slow Progress due to Pain Slow Progress due to Cognition Assessment Summary Pt low complexity and main barriers are steps, decreased STM, and that will not be able to do any heavy lifting. Pt needing more assist for bed mobility and will need more caregiver training for needs. Therefore pt may require short skilled rehab. Goals Dressing Goal Standby Assistance Toileting Goal Independent Bathing Goal Standby Assistance Toilet Transfer Goal Independent Shower Transfer Goal Standby Assistance Patient/Caregiver Education Goal Demonstrate Post-Op Precautions Caregiver Independent Assisting Patient Days to Meet Goals 3 Frequency of Treatment Frequency Of Treatment Once a Day Treatment Plan OT Treatment Plan ADL Training Functional Cognition Training Functional Mobility Patient/Family Education Discharge Planning Discharge Recommendations OT Discharge Recommendations Home versus SKilled rehab
--- NOTE | 2017-12-31 11:47 | PC.NURSE ---
Bulk dressing to back has been changed to lower profile Coversite dressing. Mild serous drainage to old dressing noted. Incisions were well approximated and closed with sutures. Left sided incision warm to touch and erythemic, but blanchable. No active drainage noted at this time. Pt remains afebrile. Dr. Garcia has been notified. No new orders at this time.
--- NOTE | 2017-12-31 14:45 | PT.IPTN ---
Current Diagnoses Essential (primary) hypertension (12/29/17) Other spondylosis with radiculopathy, lumbar region (12/29/17) Benign prostatic hyperplasia without lower urinary tract symptoms (12/29/17) Arthrodesis status (12/29/17) Surgery Performed Operation Date: 12/29/17 12:15 Actual Procedures p L3-4 Right Hemilaminectomy, L3-4, L4-5 TLIF w/Posterior Angie Mcdaniels MD Physical Therapy Treatment Note M2 PT-IP Current Condition Start: 12/30/17 12:35 Freq: NEEDED Status: Active Protocol: Document 12/30/17 09:30 AB (Rec: 12/30/17 12:46 AB [email or web address]) Physical Therapy Current Condition Current Condition Evaluation Date 12/30/17 Treatment Diagnosis s/p L3-4, L4-5 TLIF with lami; difficulties in walking Onset Date 12/29/17 Precautions Lumbar Precautions Log Roll No Twisting Limit Bending Lifting Restriction of 10 lbs Gait Belt above Incisional Area M3 PT-IP Subjective Start: 12/30/17 12:35 Freq: NEEDED Status: Active Protocol: Document 12/31/17 14:45 GGD (Rec: 12/31/17 15:20 GGD [id number]) Subjective Physical Therapy Visit Type Type Treatment Note Visit Start Time 14:09 Visit Stop Time 14:45 Total Visit Minutes 35 Physical Therapy Visit Comments Patient Comments Pt states he willing to get up . Therapy Pain Assessment Pain When Pain Assessed At Rest Pain Present Pain Present Pain Reported Location Back Intensity 4 Pain Management Techniques Re-positioning Timing of Activity with Medications M4 PT-IP Mobility and Gait Start: 12/30/17 12:35 Freq: NEEDED Status: Active Protocol: Document 12/31/17 14:45 GGD (Rec: 12/31/17 15:20 GGD [id number]) PT-Bed Mobility Assessment Rolling Type of Rolling Log Rolling Supine to Sit Supine to Sit Minimal Assistance 1 Person Assistance Bedrails Sit to Supine Sit to Supine Contact Guard Assistance Scooting Scooting to Edge of Bed Standby Assistance PT-Transfer Assessment Sit to and From Stand Sit to and from Stand Standby Assistance Minimal Assistance Use of Upper Extremities Equipment Transfer Assistive Device Gait Belt Front Wheeled Walker Transfers Transfer Destination Bed Toilet Comments Mobility Comments Pt need mod cues for bed mobility. Gait Assessment Gait Gait Assistance Required: Standby Assistance Distance (Feet) (feet) 225 Assistive Devices Assistive Device Gait Belt Front Wheeled Walker Orthotic/Prosthetic Devices or Brace: No Gait Deviations General Gait Pattern Decreased Stride Length Decreased Feet Clearance Factors Limiting Gait Function Factors Limiting Gait Function Decreased Activity Tolerance Decreased Strength Pain Poor Balance Poor Safety Awareness M5 PT-IP Objective Assessments Start: 12/30/17 12:35 Freq: NEEDED Status: Active Protocol: Document 12/30/17 09:30 AB (Rec: 12/30/17 12:46 AB [email or web address]) Orientation Orientation/Cognition Level of Alertness Alert Orientation Name Age Birthday Month Date Year Day of Week Place Situation Safety Awareness Decreased Safety Awareness Memory Description Short Term Impaired Development Assistant Impaired Strength Lower Extremity Strength Assessment Bilaterally Impaired Comments Strength Comments RLE: 3+/5 LLE 4-/5 M6 PT-IP Treatment Start: 12/30/17 12:35 Freq: NEEDED Status: Active Protocol: Document 12/31/17 14:45 GGD (Rec: 12/31/17 15:20 GGD [id number]) Physical Therapy Treatment Education Education Provided Precautions Safety M7 PT-IP Assessment and Plan Start: 12/30/17 12:35 Freq: NEEDED Status: Active Protocol: Document 12/31/17 14:45 GGD (Rec: 12/31/17 15:20 GGD [id number]) PT Summary Assessment and Plan Summary Assessment Summary Pt need cues for full log roll and hand placement. He need assist wiht supine to sit. Frequency of Treatment Frequency Of Treatment Twice a Day Treatment Plan Other Recommendations and Next Treatment bed mobility, ambulation, Focus stair climbing Recommendations To Nursing Amount of Assist Needed 1 Person Assist Discharge Recommendations PT Discharge Recommendations Home with Assistance Other Discharge Recommendations vs SNF if unable to do stairs and perform SBA bed mobility
[2017-12-31] MEDS: HYDROMORPHONE 0.5 MG INJ IV (16:30)
[2017-12-31] MEDS: ACETAMINOPHEN 325 MG TABLET 650 MG PO (19:55)
[2017-12-31] MEDS: SENNOSIDES 8.6 MG TABLET 17.2 MG PO (19:56)
[2018-01-01 00:25] VITALS: BP 107/64; PULSE 83; RESP 16; TEMP 36.9; O2SAT 93
[2018-01-01] MEDS: OXYCODONE IR 5 MG TABLET 10 MG PO ×3 (02:24→13:48)
[2018-01-01 04:50] VITALS: BP 109/72; PULSE 89; RESP 14; TEMP 37.4; O2SAT 91
--- NOTE | 2018-01-01 05:09 | PC.NURSE ---
Addendum entered by Katina Hamilton R.N. 01/01/18 05:23: Lower back dressing intact with small amount of sero-sang drainage shadowing to right side dressing. Area marked with pen. 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 Rates 4/10 dull constant aching to lower back surgery site. Pain management plan discussed. Oxycodone prn given at 0230 with god effect, pt able to fall back asleep. OOB with 1PA to BR, voiding qs. Pt encouraged to use incentive spirometer. AE clear and very diminished to lower bases. High fall risk precautions in place, bed alarm on.
[2018-01-01 07:15] VITALS: PULSE 84; RESP 17; TEMP 37.3; O2SAT 90
[2018-01-01] MEDS: DOCUSATE 100 MG CAPSULE PO (07:44)
[2018-01-01] MEDS: hydroCHLOROthiazide 12.5 MG CAPSULE PO (07:45)
[2018-01-01] MEDS: TAMSULOSIN 0.4 MG CAPSULE PO (07:45)
[2018-01-01] MEDS: SODIUM CHLORIDE 0.9% FLUSH 10 ML IV (07:45)
[2018-01-01] MEDS: LOSARTAN 50 MG TABLET PO (07:45)
--- NOTE | 2018-01-01 08:55 | PT.IPTN ---
Current Diagnoses Essential (primary) hypertension (12/29/17) Other spondylosis with radiculopathy, lumbar region (12/29/17) Benign prostatic hyperplasia without lower urinary tract symptoms (12/29/17) Arthrodesis status (12/29/17) Surgery Performed Operation Date: 12/29/17 12:15 Actual Procedures p L3-4 Right Hemilaminectomy, L3-4, L4-5 TLIF w/Posterior Angie Mcdaniels MD Physical Therapy Treatment Note M2 PT-IP Current Condition Start: 12/30/17 12:35 Freq: NEEDED Status: Active Protocol: Document 12/30/17 09:30 AB (Rec: 12/30/17 12:46 AB [email or web address]) Physical Therapy Current Condition Current Condition Evaluation Date 12/30/17 Treatment Diagnosis s/p L3-4, L4-5 TLIF with lami; difficulties in walking Onset Date 12/29/17 Precautions Lumbar Precautions Log Roll No Twisting Limit Bending Lifting Restriction of 10 lbs Gait Belt above Incisional Area M3 PT-IP Subjective Start: 12/30/17 12:35 Freq: NEEDED Status: Active Protocol: Document 01/01/18 08:55 GGD (Rec: 01/01/18 10:33 GGD [id number]) Subjective Physical Therapy Visit Type Type Treatment Note Visit Start Time 08:30 Visit Stop Time 08:55 Total Visit Minutes 25 Number of LINER ROLL CHANGER Visits 2 Physical Therapy Visit Comments Patient Comments Pt states he having a little more pain. Therapy Pain Assessment Pain When Pain Assessed At Rest Pain Present Pain Present Pain Reported Location Back Intensity 5 Scale Used Numeric (1 - 10) Pain Behaviors Guarding Pain Management Techniques Re-positioning Timing of Activity with Medications M4 PT-IP Mobility and Gait Start: 12/30/17 12:35 Freq: NEEDED Status: Active Protocol: Document 01/01/18 08:55 GGD (Rec: 01/01/18 10:33 GGD [id number]) PT-Bed Mobility Assessment Rolling Type of Rolling Log Rolling Supine to Sit Supine to Sit Contact Guard Assistance Bedrails Sit to Supine Sit to Supine Contact Guard Assistance Bedrails Scooting Scooting to Edge of Bed Standby Assistance PT-Transfer Assessment Sit to and From Stand Sit to and from Stand Standby Assistance Minimal Assistance Use of Upper Extremities Equipment Transfer Assistive Device Gait Belt Front Wheeled Walker Transfers Transfer Destination Bed Toilet Comments Mobility Comments Pt need mod cues for bed mobility. Gait Assessment Gait Gait Assistance Required: Contact Guard Assist Distance (Feet) (feet) 150 Assistive Devices Assistive Device Gait Belt Front Wheeled Walker Orthotic/Prosthetic Devices or Brace: No Gait Deviations General Gait Pattern Decreased Stride Length Decreased Feet Clearance Factors Limiting Gait Function Factors Limiting Gait Function Decreased Activity Tolerance Decreased Strength Pain Poor Balance Poor Safety Awareness Stair Climbing Assessment Evaluation Level of Assist On Stairs Contact Guard Assistance Devices Stair Climbing Assistive Devices Right Railing Technique/Endurance Stair Climbing Direction Ascend and Descend Stair Climbing Technique Step to Step Number of Steps Climbed 3 Query Text: Stair Climbing Set # Repetitions (reps) 2 M5 PT-IP Objective Assessments Start: 12/30/17 12:35 Freq: NEEDED Status: Active Protocol: Document 12/30/17 09:30 AB (Rec: 12/30/17 12:46 AB [email or web address]) Orientation Orientation/Cognition Level of Alertness Alert Orientation Name Age Birthday Month Date Year Day of Week Place Situation Safety Awareness Decreased Safety Awareness Memory Description Short Term Impaired Custodial Impaired Strength Lower Extremity Strength Assessment Bilaterally Impaired Comments Strength Comments RLE: 3+/5 LLE 4-/5 M6 PT-IP Treatment Start: 12/30/17 12:35 Freq: NEEDED Status: Active Protocol: Document 01/01/18 08:55 GGRandell (Rec: 01/01/18 10:33 GGD [id number]) Physical Therapy Treatment Education Education Provided Precautions M7 PT-IP Assessment and Plan Start: 12/30/17 12:35 Freq: NEEDED Status: Active Protocol: Document 01/01/18 08:55 GGD (Rec: 01/01/18 10:33 GGD [id number]) PT Summary Assessment and Plan Summary Assessment Summary Pt improving with bed mobility and log roll. He still needs cues for full log roll and hand placement. He was safe and stable with stair. No LOB with gait. Frequency of Treatment Frequency Of Treatment Twice a Day Treatment Plan Other Recommendations and Next Treatment bed mobility, ambulation, Focus stair climbing Recommendations To Nursing Amount of Assist Needed 1 Person Assist Discharge Recommendations PT Discharge Recommendations Home with Assistance
--- NOTE | 2018-01-01 09:17 | PM.PNPO.1 ---
Subjective Date Patient Seen: 01/01/18 Time Patient Seen: 09:17 Interval history: Hospital day 4, postop day 3 following L3-4, L4-5 TLIF, cage, the posterior screw fixation and L5-S1 left hemilaminectomy by Dr. Mcdaniels. Patient is continuing to have pain control issue. Did have to have some IV pain medication during the night. Limited ambulation with physical therapy. No leg symptoms noted. Exam Vital Signs (past 8 hours): - 01/01/18 04:50 01/01/18 07:15 Temperature 99.4 F 99.1 F Pulse Rate 89 84 Respiratory Rate 14 17 Blood Pressure 109/72 Pulse Oximetry 91 90 L Oxygen Delivery Method Room Air Oxygen Flow Rate 0 Narrative Exam Narrative: Alert, oriented no acute distress resting in bed. Back. Dressing to the lumbar area is dry without signs of infection or inflammation. Slight erythema along the incisional areas where the loren were located. No signs of drainage or infection. Legs. No calf pain or swelling. Pulses symmetrical. Good sensation to touch to the lower legs. Good strength in foot dorsiflexion plantar flexion bilateral. Objective Labs Result Diagrams: 12/30/17 05:59 Assessment & Plan Post-op Postoperative Procedures Operation Date: 12/29/17 12:15 Actual Procedures Side Surgeon p L3-4 Right Hemilaminectomy, L3-4, L4-5 TLIF w/Posterior Instru Claudia Mcdaniels MD Planned. Will have patient work with physical therapy more today to see if he improved with pain and function. His was not comfortable having him go home today to take care of him. Anticipate discharge home tomorrow feels stable. Time Spent With Patient less than 15 minutes Quality VTE Deep Vein Thrombosis/Pulmonary Embolism Present on Admission: No
[2018-01-01] MEDS: BISACODYL 10 MG SUPP PR (09:23)
--- NOTE | 2018-01-01 11:36 | OT.IP.TRT ---
Current Diagnoses Essential (primary) hypertension (12/29/17) Other spondylosis with radiculopathy, lumbar region (12/29/17) Benign prostatic hyperplasia without lower urinary tract symptoms (12/29/17) Arthrodesis status (12/29/17) Surgery Performed Operation Date: 12/29/17 12:15 Actual Procedures p L3-4 Right Hemilaminectomy, L3-4, L4-5 TLIF w/Posterior Angie - Claudia Mcdaniels MD Occupational Therapy Treatment Note M2 OT-IP Current Condition Start: 12/30/17 12:36 Freq: Status: Active Protocol: Document 12/30/17 12:36 [facility] (Rec: 12/30/17 13:01 [facility] [email or web address]) Occupational Therapy Current Condition Current Condition Evaluation Date 12/30/17 Treatment Diagnosis Lumbar Spinal Stenosis Post Operative Precautions Lumbar Precautions Log Roll No Twisting Limit Bending Lifting Restriction of 10 lbs Gait Belt above Incisional Area Weight Bearing Status Weight Bearing Status Weight Bear as Tolerated M3 OT- IP Subjective and Pain Start: 12/30/17 12:36 Freq: Status: Active Protocol: Document 01/01/18 11:26 [facility] (Rec: 01/01/18 11:36 [facility] [email or web address]) OT- Subjective Occupational Therapy Visit Type Type Treatment Note Visit Start Time 10:40 Visit Stop Time 11:10 Total Visit Minutes 30 Occupational Therapy Visit Comments Patient/Caregiver Goals Pt states feels ready to go home. OT Pain Assessment Pain When Pain Assessed At Rest Pain Present Pain Present Denied Pain M4 OT- IP ADL's Start: 12/30/17 12:36 Freq: Status: Active Protocol: Document 01/01/18 11:26 [facility] (Rec: 01/01/18 11:36 [facility] [email or web address]) OT ADL-Bathing Bathing Type Bathing Type Shower General Evaluation Bathing Ability Minimal Assistance Devices Bathing Equipment Shower Chair without Arms Comments OT Bathing Comments Pt needing assist to wash /dry back and for balance to stand while doing pericare needs. M6 OT- IP Functional Cognition Start: 12/30/17 12:36 Freq: Status: Active Protocol: Document 01/01/18 11:26 [facility] (Rec: 01/01/18 11:36 [facility] [email or web address]) Cognitive Factors Limiting Selfcare Function Cognitive Ability Level of Alertness Alert Patient Orientation Name Year Place Situation Attention Span Ability Capable of Focused Attention Capable of Sustained Attention Ability to Follow Commands Able to Follow Multi-Step Commands Memory Description Immediate Intact Short Term Intact Safety Awareness Underestimates Need for Assistance M7 OT- IP Mobility and Balance Start: 12/30/17 12:36 Freq: Status: Active Protocol: Document 01/01/18 11:26 [facility] (Rec: 01/01/18 11:36 [facility] [email or web address]) OT-Transfer Assessment Sit to and From Stand Sit to and from Stand Standby Assistance Contact Guard Assistance Transfers Transfer Ability Contact Guard Assistance Technique Transfer Destination Chair Transfer Technique Stand Step Pivot Devices Transfer Assistive Devices Gait Belt Front Wheeled Walker Comments Mobility Comments Pt able to do bed mobility with bed rail, pt's has orderd a rail for home use. OT- Balance Assessment Sitting Balance and Reactions Static Sitting Balance Ability Normal Dynamic Sitting Balance Ability Normal Standing Balance and Reactions Static Standing Balance Ability Good M8 OT- IP Objective Assessments Start: 12/30/17 12:36 Freq: Status: Active Protocol: Document 12/31/17 11:27 [facility] (Rec: 12/31/17 11:47 [facility] [email or web address]) OT Strength Comments Strength Comments BUE 5/5 M9 OT- IP Assessment and Plan Start: 12/30/17 12:36 Freq: Status: Active Protocol: Document 01/01/18 11:26 [facility] (Rec: 01/01/18 11:36 [facility] [email or web address]) OT Summary Assessment and Plan Potential Rehabilitation Potential Good Summary Progress Towards Goals Progressing Toward Goals Assessment Summary Pt doing much better and feels ready to go home today with his . Discharge Recommendations OT Discharge Recommendations Home with Assistance Other Discharge Recommendations to assist pt at home. Home Equipment Needs Bedrail, BSC
--- NOTE | 2018-01-01 12:23 | PM.DS.1 ---
History of Present Illness Date Patient Seen: 01/01/18 Time Patient Seen: 12:23 Chief complaint: [id number]; & M48.06 Narrative: See preoperative history and physical for history of present illness. Discharge Providers Date of admission: 12/29/17 10:15 Primary care physician: Lux Ivan MD Consults: 12/29/17 17:27 Consult to Occupational Therapy Evaluate & Treat Comment: Physician Instructions: Evaluate and treat Consult to Physical Therapy Evaluate & Treat Comment: Physician Instructions: Evaluate and Treat 12/29/17 18:58 Consult to Respiratory Therapy Evaluate & Treat Comment: s/p TLIF, suspect THEODORE undiagnosed Physician Instructions: Evaluate and treat Discharge provider: Umair Barakat PA-C Summary Discharge Diagnosis: Status post L3-4, L4-5 TLIF, cage, posterior screw fixation, L5-S1 left hemilaminectomy Hospital Course: Patient brought to hospital on 12/29/2017 for above noted surgery. He remained stable postoperatively. Gradually improved with pain and ambulation. He improved on postop day 3. Physical therapist felt he was stable to be discharged home. Status at Discharge Cognitive/behavioral status at discharge: Alert, oriented no acute distress. Functional status at discharge: uses cane/walker Overall status at discharge: patient is progressing back to baseline Time Spent with Patient Less than 30 minutes Exam Vital Signs (past 8 hours): - 01/01/18 04:50 01/01/18 07:15 Temperature 99.4 F 99.1 F Pulse Rate 89 84 Respiratory Rate 14 17 Blood Pressure 109/72 Pulse Oximetry 91 90 L Oxygen Delivery Method Room Air Oxygen Flow Rate 0 Narrative Exam Narrative: Alert, oriented in no acute distress resting in bed. Back. CovRsite dressing to lumbar areas dry without drainage. Legs. No calf pain or swelling. Pulses symmetrical. Good sensation in lower legs. Objective Labs Result Diagrams: 12/30/17 05:59 Discharge Plan Discharge Plan Patient Disposition: Home, Self-Care Discharge Med Rec/Prescriptions Prescriptions: New oxycodone 5 mg tablet 10 mg PO Q4-6H PRN (Reason: pain) Qty: 60 RF: 0 Continue multivitamin Capsule 1 cap PO QAM Qty: 0 RF: 0 tamsulosin [Flomax] 0.4 mg capsule,extended release 24hr 0.4 mg PO QDAY Qty: 30 RF: 5 losartan-hydrochlorothiazide 50-12.5 mg tablet 1 tab PO Q DAY Qty: 90 RF: 0 Follow up/Referrals: Claudia Mcdaniels MD [Physician] - Provider Discharge Instructions Diet: Diet as Tolerated Activity: Avoid excessive bending or twisting of the lumbar spine. No lifting or carrying more than 5-10 lb. Wound Care Report to your healthcare provider any signs of infection, such as:: chills, fever, night sweats, increased pain and unusual drainage Dressing: Keep dressing dry and intact until postop visit. Visit Report/Discharge Packet Instructions: DI for Transforaminal Lumbar Interbody Fusion Discharge Data Primary Care Provider: Lux Ivan Attending Provider: Claudia Mcdaniels Admit Date/Time: 12/29/17 10:15 Quality VTE Deep Vein Thrombosis/Pulmonary Embolism Present on Admission: No
--- NOTE | 2018-01-01 12:26 | P.DS_ITS ---
History of Present Illness Date Patient Seen: 01/01/18 Time Patient Seen: 12:23 Chief complaint: [id number]; & M48.06 Narrative: See preoperative history and physical for history of present illness. Discharge Providers Date of admission: 12/29/17 10:15 Primary care physician: Lux Ivan MD Consults: 12/29/17 17:27 Consult to Occupational Therapy Evaluate & Treat Comment: Physician Instructions: Evaluate and treat Consult to Physical Therapy Evaluate & Treat Comment: Physician Instructions: Evaluate and Treat 12/29/17 18:58 Consult to Respiratory Therapy Evaluate & Treat Comment: s/p TLIF, suspect THEODORE undiagnosed Physician Instructions: Evaluate and treat Discharge provider: Umair Barakat PA-C Summary Discharge Diagnosis: Status post L3-4, L4-5 TLIF, cage, posterior screw fixation , L5-S1 left hemilaminectomy Hospital Course: Patient brought to hospital on 12/29/2017 for above noted surgery. He remained stable postoperatively. Gradually improved with pain and ambulation. He improved on postop day 3. Physical therapist felt he was stable to be discharged home. Status at Discharge Cognitive/behavioral status at discharge: Alert, oriented no acute distress. Functional status at discharge: uses cane/walker Overall status at discharge: patient is progressing back to baseline Time Spent with Patient Less than 30 minutes Exam Vital Signs (past 8 hours): - 01/01/18 04:50 01/01/18 07:15 Temperature 99.4 F 99.1 F Pulse Rate 89 84 Respiratory Rate 14 17 Blood Pressure 109/72 Pulse Oximetry 91 90 L Oxygen Delivery Method Room Air Oxygen Flow Rate 0 Narrative Exam Narrative: Alert, oriented in no acute distress resting in bed. Back. CovRsite dressing to lumbar areas dry without drainage. Legs. No calf pain or swelling. Pulses symmetrical. Good sensation in lower legs. Objective Labs Result Diagrams: 12/30/17 05:59 Discharge Plan Discharge Plan Patient Disposition: Home, Self-Care Discharge Med Rec/Prescriptions Prescriptions: New oxycodone 5 mg tablet 10 mg PO Q4-6H PRN (Reason: pain) Qty: 60 RF: 0 Continue multivitamin Capsule 1 cap PO QAM Qty: 0 RF: 0 tamsulosin [Flomax] 0.4 mg capsule,extended release 24hr 0.4 mg PO QDAY Qty: 30 RF: 5 losartan-hydrochlorothiazide 50-12.5 mg tablet 1 tab PO Q DAY Qty: 90 RF: 0 Follow up/Referrals: Claudia Mcdaniels MD [Physician] - Provider Discharge Instructions Diet: Diet as Tolerated Activity: Avoid excessive bending or twisting of the lumbar spine. No lifting or carrying more than 5-10 lb. Wound Care Report to your healthcare provider any signs of infection, such as:: chills, fever, night sweats, increased pain and unusual drainage Dressing: Keep dressing dry and intact until postop visit. Visit Report/Discharge Packet Instructions: DI for Transforaminal Lumbar Interbody Fusion Discharge Data Primary Care Provider: Lux Ivan Attending Provider: Claudia Mcdaniels Admit Date/Time: 12/29/17 10:15 Quality VTE Deep Vein Thrombosis/Pulmonary Embolism Present on Admission: No
== END 2018-01-01 14:01 | disposition home or self-care (01) | DRG 455 ==
PROVIDERS: Admitting Provider Orthopaedic Surgery Orthopaedic Surgery of the Spine; PCP Family Medicine; Visit Provider Orthopaedic Surgery Orthopaedic Surgery of the Spine
PROC: 0SG10AJ Fusion of 2 or more Lumbar Vertebral Joints with Interbody Fusion Device, Posterior Approach, Anterior Column, Open Approach (ICD-10-PCS; principal; 2017-12-29 12:15)
DX: M48.061 Spinal stenosis, lumbar region without neurogenic claudication (principal); M47.26 Other spondylosis with radiculopathy, lumbar region; Z87.891 Personal history of nicotine dependence; M43.16 Spondylolisthesis, lumbar region; M48.07 Spinal stenosis, lumbosacral region
CPT/HCPCS: 36415; 72100; 76001; 85014; 85018; 94762; 97116; 97162; 97165; 97530; 97535; C1776; C9290; J0131; J0330; J0690; J1170; J2060; J2250; J2405; J2704; J3010

== ENCOUNTER 2018-08-24 12:31 | Day surgery (SDC) | payer MEDICARE, BC, SELFPAY ==
[2017-12-29 18:34] VITALS: BMI 30.7
[2018-08-24 13:21] VITALS: BP 158/85; PULSE 85; RESP 15; TEMP 36.3; O2SAT 97; BMI 30.2
[2018-08-24] MEDS: SODIUM CHLORIDE 0.9% 1,000 ML 200 ML IV (13:32)
--- NOTE | 2018-08-24 14:09 | PM.HP.1 ---
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, lumbar region (Acute) RBBB (right bundle branch block) (Acute) Spinal stenosis of lumbar region (Acute) Surgical History History of corneal transplant (Acute) History of ear surgery (Acute) Hx of appendectomy (Acute) Hx of arthroscopy of shoulder (Acute) Hx of bilateral inguinal hernia repair (Acute) Hx of tonsillectomy (Acute) Social History household members: spouse Family & Social History Social History: household members spouse Meds Home Medications Medication Instructions Recorded Confirmed Type multivitamin 1 cap PO QAM #0 11/07/10 12/29/17 History tamsulosin 0.4 mg capsule 0.4 mg PO QDAY #30 cap 11/21/17 08/24/18 Rx oxycodone 10 mg PO Q4-6H PRN #60 tab 01/01/18 Rx losartan 50 mg-hydrochlorothiazide 1 tab PO Q DAY #90 tab 03/24/18 08/24/18 Rx 12.5 mg tablet Allergies Allergy/AdvReac Type Severity Reaction Status Date / Time No Known Drug Allergies Allergy Verified 08/24/18 13:16 Review of Systems Review of Systems All systems reviewed & are unremarkable except as noted in HPI and below Exam Vital Signs (past 8 hours): - 08/24/18 13:21 Temperature 97.3 F L Pulse Rate 85 Respiratory Rate 15 Blood Pressure 158/85 H Pulse Oximetry 97 Oxygen Delivery Method Room Air Narrative Exam Narrative: Patient is alert and oriented lungs are clear with no rales or wheezes heart regular rhythm no murmur abdominal exam soft with no organomegaly no tenderness no masses rectal will be done at time of colonoscopy Assessment & Plan Assessment & Plan narrative: Patient is here for screening colonoscopy he has had 1 in the past he understands the procedure very well and has no questions.
[2018-08-24] MEDS: fentaNYL 250 MCG/5 ML INJ IV (14:22)
[2018-08-24] MEDS: MIDAZOLAM 5 MG/5 ML VIAL IV (14:22)
--- NOTE | 2018-08-24 14:24 | PM.OP.1 ---
Operative Date/Time/Diagnoses Date of procedure: 08/24/18 Time of procedure: 14:24 Pre-op diagnosis: Screening colonoscopy Procedure & Clinicians Surgeon: Myron Johnson Click Yes if Unassisted: Yes Anesthesia Type: Sedation Operative Notes Findings: The patient is not well prepped there is gross solid stool encountered from the rectum up to the into the descending colon where I aborted the procedure Closure Type: non-primary Specimen(s): none sent Procedure in detail: Patient is properly identified during surgical pause flexible fiberoptic colonoscope was inserted transanally up into the left colon through throughout the procedure there was gross stool encountered in the rectum sigmoid colon descending colon there is gross solid stool so I aborted the procedure Complications: none Condition: stable Plan for aftercare: Repeat prep and reschedule colonoscopy at a later date
[2018-08-24 14:30] VITALS: BP 138/83; PULSE 75; RESP 15; TEMP 36.4; O2SAT 94
[2018-08-24 14:47] VITALS: BP 134/73; PULSE 63; RESP 16; TEMP 36.3; O2SAT 95
== END 2018-08-24 15:08 | disposition home or self-care (01) ==
PROVIDERS: PCP Family Medicine; Visit Provider Surgery
PROC: 0DJD8ZZ Inspection of Lower Intestinal Tract, Via Natural or Artificial Opening Endoscopic (ICD-10-PCS; CPT 45378; principal; 2018-08-24 15:00)
DX: Z53.09 Procedure and treatment not carried out because of other contraindication (principal); Z12.11 Encounter for screening for malignant neoplasm of colon
CPT/HCPCS: G0104; J2250; J3010

== ENCOUNTER → 2018-09-03 12:10 | Outpatient (CLI) | payer MEDICARE, BC, SELFPAY ==
[2017-12-29 18:34] VITALS: BMI 30.7
--- NOTE | 2018-09-03 12:12 | DI.RAD.S_ITS ---
PROCEDURE: XR ACUTE ABDOMEN SERIES INDICATIONS: Abdominal distension/constipation TECHNIQUE: One view chest and two views of the abdomen were acquired. COMPARISON: None. FINDINGS: Surgical changes and devices: None. Chest: Lungs are clear. Heart size is normal. No pleural effusions. No pneumoperitoneum. Abdomen: Bowel gas pattern is normal except for moderate colonic obstipation. No suspicious calcifications. Visualized solid organ contours appear normal. Bones: No suspicious bony lesions. IMPRESSION: Prior spine fusion surgery over the mid and low lumbosacral spine, moderate colonic obstipation, no sign of intestinal obstruction or perforation. Dictated by: Savage Stevenson M.D. on 09/03/2018 at 13:13 Approved by: Savage Stevenson M.D. on 09/03/2018 at 13:13
== END ==
PROVIDERS: PCP Family Medicine; Visit Provider Surgery
DX: K59.00 Constipation, unspecified (principal); R14.0 Abdominal distension (gaseous); Z12.11 Encounter for screening for malignant neoplasm of colon; Z12.12 Encounter for screening for malignant neoplasm of rectum; Z68.32 Body mass index [BMI] 32.0-32.9, adult
CPT/HCPCS: 74022; 99213

== ENCOUNTER 2018-09-11 11:57 | Day surgery (SDC) | payer MEDICARE, BC, SELFPAY ==
[2017-12-29 18:34] VITALS: BMI 30.7
[2018-09-11] VITALS (7 sets, daily range): BP systolic 109–147; BP diastolic 61–77; PULSE 55–70; RESP 11–19; TEMP 36.2–36.8; O2SAT 95–97; BMI 30.2
--- NOTE | 2018-09-11 | PATH_ITS ---
[facility] Accession Number: [id number] . 01 Material submitted: . TRANSVERSE POLYP AT 70CM X2 . 02 Diagnosis: Transverse Colon, Polyp At 70 CM, Biopsy: Tubular adenoma in 3 of multiple fragments. I/09/14/2018 . 02 Electronically signed: . Violeta Pacheco MD, Pathologist NPI- [id number] . 01 Gross description: . Received one formalin-filled container labeled with the patient's name and labeled transverse colon polyp at 70 cm x2. The specimen consists of multiple less than 0.1 cm to 0.3 cm portions of tissue, which are filtered, wrapped, and entirely submitted in one cassette. ([id number]) /FRR . 02 Pathologist provided ICD-10: D12.3 . 02 CPT . 845916 Performed at: 01 [facility] [address], [place], [place] [id number] MD Jose G Jones MD Phone: [phone] Performed at: 02 [facility] [address] [facility], [address] [place], [place] [id number] MD Violeta Pacheco MD Phone: [phone]
[2018-09-11] MEDS: SODIUM CHLORIDE 0.9% 1,000 ML 200 ML IV (12:38)
--- NOTE | 2018-09-11 12:42 | PM.PREOP ---
Pre-operative Note Interval Note History & Physical reviewed/Exam performed by Physician: Yes Changes to H&P: No H&P completed within 30 days and has changed as indicated here:: Patient seen and examined in the preoperative area. History physical examination from September 03, 2018 is on the chart and has not changed. Proceed with colonoscopy today as planned. ASA Class (for procedural sedation): II
[2018-09-11] MEDS: fentaNYL 250 MCG/5 ML INJ IV (12:55)
[2018-09-11] MEDS: MIDAZOLAM 5 MG/5 ML VIAL IV (12:56)
--- NOTE | 2018-09-11 13:06 | PM.OP.ENDO ---
Operative Date/Time/Diagnoses Date of procedure: 09/11/18 Time of procedure: 13:07 Pre-op diagnosis: Colorectal screening Post-op diagnosis: other (Diverticulosis and colon polyps) Procedure & Clinicians Study performed: 1. Sedation per surgeon 2. Colonoscopy with cold forceps polypectomies Same procedure as scheduled: Yes Indications: 77-year-old male who presented for colorectal screening. Colonoscopy is recommended. Surgeon: Balbir Walters Procedure Notes SCOAP/Timeout: Yes Procedure in detail: After obtaining informed consent, the patient was brought to the GI suite and placed in the left lateral decubitus position on the examination table. After placement of appropriate monitors, the patient was given incremental doses of Versed and Fentanyl until an appropriate level of sedation was achieved. A time out was held per SCOAP protocol. A digital rectal examination was performed and did not reveal any masses or obstructing lesions. The colonoscope was gently passed into the patient's anus and the entire colon navigated to the level of the cecum with minimal difficulty. Terminal ileum was intubated and noted to be grossly normal. Once in the cecum, the scope was withdrawn being sure to go before and beyond all mucosal folds and prominences and get an excellent examination. The findings are noted above. At the level of the rectal vault, the scope was retroflexed and the internal anal canal was examined. The scope was straightened and air aspirated from the colon. The instrument was removed from the patient's body and the procedure was concluded. The patient was allowed to awaken from sedation without difficulty and taken to the post-anesthesia care unit in good condition. Scope withdrawal time: 11:28 min Sedation minutes: 17 Findings: diverticulosis and polyp Specimen(s): other (Transverse colon polyps x2 at 70 cm) Complications: none Recommendations: High fiber diet, Will call with biopsy results and Other recommendation (May not require follow-up colonoscopy pending biopsy results) Plan for aftercare: 1. Discharge home Follow up: as needed Disposition: PACU
--- NOTE | 2018-09-11 13:21 | SUR.PHASEI ---
Pt's belly still distended, + bowel tones. Still denies pain.
--- NOTE | 2018-09-11 13:54 | SUR.PHASEII ---
Dr Walters to bedside-pt's belly softer, no nausea, no pain tolerated juice, to bedside, voiced an understanding of d/c instructions.
== END 2018-09-11 14:03 | disposition home or self-care (01) ==
PROVIDERS: PCP Family Medicine; Visit Provider Surgery
PROC: 0DJD8ZZ Inspection of Lower Intestinal Tract, Via Natural or Artificial Opening Endoscopic (ICD-10-PCS; CPT 45378; principal; 2018-09-11 13:00)
DX: Z12.11 Encounter for screening for malignant neoplasm of colon (principal); K57.30 Diverticulosis of large intestine without perforation or abscess without bleeding; D12.3 Benign neoplasm of transverse colon; I10 Essential (primary) hypertension; I45.2 Bifascicular block
CPT/HCPCS: 45380; 88305; 99152; J2250; J3010

== ENCOUNTER 2022-04-10 09:49 | Inpatient (IN) | payer MEDICARE, BC, SELFPAY ==
[2017-12-29 18:34] VITALS: BMI 30.7
[2022-04-10 10:00] VITALS: BP 172/77; PULSE 66; RESP 18; TEMP 35.9; O2SAT 97; BMI 31.6
--- NOTE | 2022-04-10 10:06 | DI.RAD.S_ITS ---
PROCEDURE: XR CHEST 1V INDICATIONS: chest pain TECHNIQUE: One view of the chest was acquired. COMPARISON: None. FINDINGS: Surgical changes and devices: None. Lungs and pleura: Lungs are clear. No pleural effusions or pneumothorax. Mediastinum: Mediastinal contours appear normal. Heart size is normal. Bones and chest wall: No suspicious bony lesions. Overlying soft tissues appear unremarkable. IMPRESSION: No acute cardiopulmonary abnormality. Dictated by: Jean Paul Holliday M.D. on 04/10/2022 at 11:03 Approved by: Jean Paul Holliday M.D. on 04/10/2022 at 11:05
[2022-04-10 10:26] LABS: Add Manual Diff / Slide Review NO; Basophils Absolute Auto 100 /uL (0-100); Basophils Percent Auto 0.7 % (0-2); Eosinophils Absolute Auto 100 /uL (0-450); Eosinophils Percent Auto 0.5 % (2-4); Hemoglobin 12.9 g/dL (13.5-17.5); Lymphocytes Absolute Auto 1200 /uL (1100-4500); Lymphocytes Percent Auto 10.8 % (25-40); Mean Corpuscular HGB Conc 33.1 % (30-36); Mean Corpuscular Hemoglobin 28.8 PG (26-34); Monocytes Absolute Auto 700 /uL (0-900); Monocytes Percent Auto 6.3 % (3-14); Neutrophils Absolute Auto 9200 /uL (1500-7000); Neutrophils Percent Auto 81.7 % (50-75); Platelet Count 178 X10^3/uL (150-400); Red Blood Cell Count 4.48 X10^6/uL (4.5-5.9); Red Cell Distribution Width 14.2 % (11.6-14.8); White Blood Cell Count 11.3 X10^3/uL (4.5-11.0)
[2022-04-10 10:32] LABS: Chloride 104 mmol/L (98-107); HEMOLYSIS < 15 (0-50)
[2022-04-10 10:35] LABS: Alanine Aminotransferase 24 IU/L (<50); Albumin Globulin Ratio 1.1 (1.0-2.8); Alkaline Phosphatase 95 U/L (38-126); Aspartate Aminotransferase 19 IU/L (17-59); BUN Creatinine Ratio 19.2 (6-22); Bilirubin Total 0.5 mg/dL (0.2-1.3); Blood Urea Nitrogen 25 mg/dL (9-20); Calcium 8.3 mg/dL (8.4-10.2); Carbon Dioxide 26 mmol/L (22-32); Creatine Kinase 56 U/L (55-170); Estimated Glomerular Filt Rate 56 mL/min (>60); Globulin 3.5 g/dL (1.7-4.1); Glucose 149 mg/dL (80-110); Lipase 128 U/L (23-300); Magnesium 2.2 mg/dL (1.6-2.3); Potassium 4.8 mmol/L (3.4-5.1); Sodium 139 mmol/L (137-145); Total Protein 7.5 g/dL (6.3-8.2)
[2022-04-10 10:46] LABS: Troponin I < 0.012 ng/mL (0.01-0.034)
[2022-04-10 13:05] VITALS: TEMP 36.9
--- NOTE | 2022-04-10 13:14 | ED.CHESTPAIN ---
HPI - Chest Pain General Chief Complaint: Chest Pain Stated Complaint: CHEST PAIN Time Seen by Provider: 04/10/22 13:13 Source: patient Mode of arrival: Ambulatory Limitations: no limitations History of Present Illness HPI narrative: This is a 81-year-old male with history of hypertension dyslipidemia and BPH who presents with complaint of chest pressure. Patient states several days ago he was walking he developed chest pressure which resolved after he finished walking. Today he is had approximately 5 episodes which he describes as exertional chest pressure. States was 3/10 maximum. He does feel short of breath when it occurs. He feels clammy but does not become completely diaphoretic. Describes as a pressure not painful he denies radiation to back neck extremities or abdomen. He states it is gone it took about 15 minutes when he rests for it to go away. He states it only seems to be when he exerts himself or walks around. He denies any new swelling in his extremities. No fevers, no chills, no cold cough or congestion. No nausea or vomiting. No issues with bowel movements or urination. Patient took aspirin 81 mg x 3 prior to arrival. He states he is had prior back fusion, inguinal hernia repair shoulder surgery, corneal transplant hearing implant. He is never had a cardiac catheterization cardiac stents or treadmill test. Smoked for 3 or 4 years 50 years ago, has 3 alcoholic drinks serially and denies any illicit. His primary care is Dr. Staley. Family history he states he had a grandfather who of likely a cardiac event at age 83. Related Data Home Medications Medication Instructions Recorded Confirmed multivitamin 1 cap PO QAM ##0 11/07/10 04/10/22 Previous Rx's Medication Instructions Recorded losartan 50 mg-hydrochlorothiazide 1 tab PO Q DAY #90 tabs 09/21/18 12.5 mg tablet tamsulosin 0.4 mg capsule (Flomax) 0.4 mg PO QDAY #90 caps 11/17/18 Allergies Allergy/AdvReac Type Severity Reaction Status Date / Time No Known Drug Allergies Allergy Verified 08/24/18 13:16 Review of Systems Review of Systems ROS Unobtainable: All systems reviewed & are unremarkable except as noted in HPI and below 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, lumbar region RBBB (right bundle branch block) Spinal stenosis of lumbar region Surgical History History of corneal transplant History of ear surgery Hx of appendectomy Hx of arthroscopy of shoulder Hx of bilateral inguinal hernia repair Hx of tonsillectomy Family History (Updated 04/10/22 @ 17:23 by Umair Jones DO) Father Bone cancer CAD (coronary artery disease) Mother No pertinent past medical history Social History marital status: household members: spouse occupational status: previously employed Smoking Status: Never smoker alcohol intake: current substance use type: does not use Smoking Status: Never smoker alcohol intake frequency: a few times a month Substance Use Type: does not use Exam Narrative Exam Narrative: GENERAL: Alert and oriented x three, male in mild distress HEENT: Head normocephalic, atraumatic, EOMI, pupils reactive, face symmetric, moist mucous membranes NECK: Supple, full range of motion CARDIOVASCULAR: Regular rate and rhythm without murmurs, rubs or gallops. No JVD. No swelling bilateral lower extremities. RESPIRATORY: Breath sounds equal bilaterally, no wheezes rales or rhonchi. ABDOMEN: Soft, nontender. Normoactive bowel sounds all 4 quadrants. No guarding or rebound, rigidity, no mass : No CVA tenderness EXTREMITIES: Normal range of motion, no clubbing or edema. Neurovascularly intact NEUROLOGICAL: Cranial nerves II through XII grossly intact. Moving all extremities SKIN: Warm, dry, no petechiae, no rashes or lesions. Initial Vital Signs Initial Vital Signs: Vital Signs Temperature 96.6 F L 04/10/22 10:00 Pulse Rate 66 04/10/22 10:00 Respiratory Rate 18 04/10/22 10:00 Blood Pressure 172/77 H 04/10/22 10:00 Pulse Oximetry 97 04/10/22 10:00 Oxygen Delivery Method 04/10/22 10:00 Scores HEART Score Heart Score history: Highly Suspicious Heart Score EKG: Non-Specific repolarization disturbance Heart Score Age: > or = 65 years old Heart Score risk factors: 1-2 risk factors Heart Score troponin: < or = to normal limit Heart Score Total: 6 Course Orders Ordered: ED Orders 04/10/22 12:51 EKG-12 Lead Stat 04/10/22 13:00 Troponin I Stat 04/10/22 14:02 COVID19 -Nasal RAPID/Pre-Proc Stat 04/10/22 14:56 stress [NM ronda perf SPECT rest & str] Stat 04/10/22 18:27 Troponin I Urgent 04/11/22 05:00 Basic Metabolic Panel DAILY Complete Blood Count AUTO DIFF DAILY Hemoglobin A1C% w Est Avg Glu Routine Lipid Panel Routine Magnesium DAILY TSH w/ Reflex to FT4 Routine 04/12/22 05:00 Basic Metabolic Panel DAILY Complete Blood Count AUTO DIFF DAILY Magnesium DAILY 04/13/22 05:00 Basic Metabolic Panel DAILY Complete Blood Count AUTO DIFF DAILY Magnesium DAILY Acetaminophen (Acetaminophen 325 Mg Tablet) 975 mg PO Q8H PRN PRN Reason: Pain, Mild (1-3) Hydrochlorothiazide (Hydrochlorothiazide 25 Mg Tablet) 12.5 mg PO DAILY CYNDI Losartan Potassium (Losartan 50 Mg Tablet) 50 mg PO DAILY CYNDI Ondansetron HCl (Ondansetron 4 Mg/2 Ml Inj) 4 mg IV Q8HR PRN PRN Reason: Nausea And Vomiting Tamsulosin HCl (Tamsulosin 0.4 Mg Capsule) 0.4 mg PO DAILY CYNDI Discontinued Medications Aspirin (Aspirin 81 Mg Chew Tab) 81 mg PO NOW ONE Stop: 04/10/22 13:42 Last Admin: 04/10/22 13:52 Dose: 81 mg Documented By: JERMAINE Losartan Potassium (Losartan 25 Mg Tablet) 25 mg PO NOW ONE Stop: 04/10/22 17:32 Last Admin: 04/10/22 17:43 Dose: 25 mg Documented By: MILLIE Consultations Consultation #1: Dr. Jones, hospitalist Vital Signs Vital signs: Vital Signs - 8 hr 04/10/22 13:05 04/10/22 14:01 04/10/22 14:30 Temperature 98.4 F Pulse Rate 66 55 L Respiratory Rate 24 17 Pulse Oximetry 97 96 MDM - Chest Pain Lab Data Result diagrams: 04/10/22 10:10 04/10/22 10:10 Labs: Lab Results 04/10/22 04/10/22 04/10/22 Range/Units 10:10 10:10 13:00 WBC 11.3 H (4.5-11.0) X10^3/uL RBC 4.48 L (4.5-5.9) X10^6/uL Hgb 12.9 L (13.5-17.5) g/dL Hct 39.0 L (41-53) % MCV 87.0 (80-100) fL MCH 28.8 (26-34) PG MCHC 33.1 (30-36) % RDW 14.2 (11.6-14.8) % Plt Count 178 (150-400) X10^3/uL Neut % (Auto) 81.7 H (50-75) % Lymph % (Auto) 10.8 L (25-40) % [place] % (Auto) 6.3 (3-14) % Eos % (Auto) 0.5 L (2-4) % Baso % (Auto) 0.7 (0-2) % Neut # (Auto) 9200 H (0020-9282) /uL Lymph # (Auto) 1200 (6019-7156) /uL [place] # (Auto) 700 (0-900) /uL Eos # (Auto) 100 (0-450) /uL Baso # (Auto) 100 (0-100) /uL Sodium 139 (137-145) mmol/L Potassium 4.8 (3.4-5.1) mmol/L Chloride 104 (98-107) mmol/L Carbon Dioxide 26 (22-32) mmol/L BUN 25 H (9-20) mg/dL Creatinine 1.30 H (0.66-1.25) mg/dL Estimated GFR 56 L (>60) mL/min BUN/Creatinine Ratio 19.2 (6-22) Glucose 149 H (80-110) mg/dL Calcium 8.3 L (8.4-10.2) mg/dL Magnesium 2.2 (1.6-2.3) mg/dL Total Bilirubin 0.5 (0.2-1.3) mg/dL AST 19 (17-59) IU/L ALT 24 (<50) IU/L Alkaline Phosphatase 95 (38-126) U/L Total Creatine Kinase 56 (55-170) U/L CK-MB (CK-2) TNP CK-MB (CK-2) Rel Index TNP Troponin I < 0.012 < 0.012 (0.01-0.034) ng/mL Total Protein 7.5 (6.3-8.2) g/dL Albumin 4.0 (3.5-5.0) g/dL Globulin 3.5 (1.7-4.1) g/dL Albumin/Globulin Ratio 1.1 (1.0-2.8) Lipase 128 (23-300) U/L SARS-CoV-2 (PCR) (Negative) 04/10/22 Range/Units 14:02 WBC (4.5-11.0) X10^3/uL RBC (4.5-5.9) X10^6/uL Hgb (13.5-17.5) g/dL Hct (41-53) % MCV (80-100) fL MCH (26-34) PG MCHC (30-36) % RDW (11.6-14.8) % Plt Count (150-400) X10^3/uL Neut % (Auto) (50-75) % Lymph % (Auto) (25-40) % [place] % (Auto) (3-14) % Eos % (Auto) (2-4) % Baso % (Auto) (0-2) % Neut # (Auto) (5571-0783) /uL Lymph # (Auto) (7479-0365) /uL [place] # (Auto) (0-900) /uL Eos # (Auto) (0-450) /uL Baso # (Auto) (0-100) /uL Sodium (137-145) mmol/L Potassium (3.4-5.1) mmol/L Chloride (98-107) mmol/L Carbon Dioxide (22-32) mmol/L BUN (9-20) mg/dL Creatinine (0.66-1.25) mg/dL Estimated GFR (>60) mL/min BUN/Creatinine Ratio (6-22) Glucose (80-110) mg/dL Calcium (8.4-10.2) mg/dL Magnesium (1.6-2.3) mg/dL Total Bilirubin (0.2-1.3) mg/dL AST (17-59) IU/L ALT (<50) IU/L Alkaline Phosphatase (38-126) U/L Total Creatine Kinase (55-170) U/L CK-MB (CK-2) CK-MB (CK-2) Rel Index Troponin I (0.01-0.034) ng/mL Total Protein (6.3-8.2) g/dL Albumin (3.5-5.0) g/dL Globulin (1.7-4.1) g/dL Albumin/Globulin Ratio (1.0-2.8) Lipase (23-300) U/L SARS-CoV-2 (PCR) Negative (Negative) Point of Care Testing Glucose POC 80 Imaging Data Chest x-ray: Radiologist's Impression: [address] [address] XRay Report Signed Patient: Vladimir White MR#: [id number] : 1940 Acct:[id number] Age/Sex: 81 / M Date of Service: 04/10/22 Loc: ED Accession Number: [id number] ?? Procedure: XR chest 1V Ordering Provider: Christina Cyr D.O. PROCEDURE:? XR CHEST 1V ? INDICATIONS:? chest pain ? TECHNIQUE:? One view of the chest was acquired.? ? COMPARISON:? None. ? FINDINGS:? ? Surgical changes and devices:? None.? ? Lungs and pleura:? Lungs are clear.? No pleural effusions or pneumothorax.? ? Mediastinum:? Mediastinal contours appear normal.? Heart size is normal.? ? Bones and chest wall:? No suspicious bony lesions.? Overlying soft tissues appear unremarkable.? ? IMPRESSION:? No acute cardiopulmonary abnormality. ? ? Dictated by: Jean Paul Holliday M.D. on 04/10/2022 at 11:03 ? ? Approved by: Jean Paul Holliday M.D. on 04/10/2022 at 11:05?? ECG Data Attestation: I personally reviewed and interpreted this ECG as follows: Prior ECG tracings: available for review Interpretation: Sinus bradycardia with sinus arrhythmia rate of 56 HI 152 QRS of 128 QTC of 422. No acute ST elevation appreciated. Right bundle-branch block. Prior EKG from 12/04/2017 shows no acute changes. MDM Narrative Medical decision making narrative: This is an 81-year-old male with hypertension, dyslipidemia with heart score of 6 with exertional chest pain that is new onset with shortness of breath. Initial labs, chest x-ray are negative. EKG shows right bundle branch block which patient was already aware of. He does not have a strong family history repeat troponin was obtained Discussed hospitalist about keeping for chest pain observation and cardiac workup, Dr. Jones accepts. Discharge Plan Departure Patient Disposition: Admitted as Observation Clinical Impression: Chest pain, Benign prostatic hyperplasia Admit Date/Time: 04/10/22 15:00 Admit Provider: Umair Jones
[2022-04-10 13:44] LABS: Troponin I < 0.012 ng/mL (0.01-0.034)
[2022-04-10] MEDS: ASPIRIN 81 MG CHEW TAB PO (13:52)
[2022-04-10 14:01] VITALS: PULSE 66; RESP 24; O2SAT 97
[2022-04-10 14:17] LABS: COVID19 -Nasal RAPID Negative (Negative)
[2022-04-10 14:30] VITALS: PULSE 55; RESP 17; O2SAT 96
--- NOTE | 2022-04-10 14:56 | DI.NM.S_ITS ---
PROCEDURE: NM CYN PERF SPECT SINGLE STUDY Rest and exercise myocardial perfusion SPECT with gated imaging and ejection fraction RADIOPHARMACEUTICAL: 21.1 mCi Tc-99m sestamibi IV at rest. INDICATIONS: chest pain TECHNIQUE: Radiopharmaceutical was injected at peak stress test, and also at rest. SPECT images were obtained. SPECT myocardial perfusion images were displayed in short axis, horizontal long axis, and vertical long axis views. Gated images were reviewed using [employer] software. COMPARISON: None. CARDIAC STRESS: A standard Azael treadmill exercise tolerance test was performed by the patient under the supervision of an attending staff. The patient exercised for 2 minutes and 38 seconds; functional aerobic impairment (VICENTE) is +38%. Hemodynamic data: There is normal blood pressure and heart rate response to exercise stress. Patient achieved 82% of maximum predicted heart rate at peak exercise. Symptoms: Patient had significant chest pain and dyspnea during exercise and exercise was stopped abruptly. Stress nuclear isotope was not administered. Nitroglycerin X2 resolved symptoms but SBP dropped from 120s-60s and it recovered with IVFs. EKG: Resting ECG showed sinus rhythm with RBBB. With exercise, there [id number] ST elevations in the V2-V3 leads that resolved within 2 minutes of recovery. There were also 1-2mm horizontal ST depressions in the inferior leads during recovery. Rare PACs and rare PVCs present. FINDINGS: Raw data: There is good myocardial labeling by radiotracer. No significant motion artifacts. Left ventricle function: Gated images demonstrate normal left ventricle wall thickening. No segmental wall motion abnormality. The left ventricle resting end-diastolic volume is 81 mL. Left ventricle rest ejection fraction is 73%; normal values are above 45%. Myocardial perfusion: There is a mildly intense inferior wall defect at rest. IMPRESSION: Highly abnormal stress test. 1) 1) There is a mildly intense inferior wall defect at rest. No stress images. 2) Normal left ventricular size, wall motion, and systolic function (EF post stress 73%). 3) Patient had significant chest pain and dyspnea during exercise and exercise was stopped abruptly. Stress nuclear isotope was not administered. Nitroglycerin X2 resolved symptoms but SBP dropped from 120s-60s and it recovered with IVFs. 4) With exercise, there [id number] ST elevations in the V2-V3 leads that resolved within 2 minutes of recovery. There were also 1-2mm horizontal ST depressions in the inferior leads during recovery that resolved after 15 minutes. 5) Reduced exercise tolerance (4.6METs, VICENTE +38%). Submaximal study as only 82% of maximum predicted heart rate achieved. 6) No prior nuclear stress test available for comparison. Findings discussed with Dr. Jones. Recommend transfer to [facility] for urgent inpatient cardiac cath. Dictated by: Yannick Geroge MD on 04/11/2022 at 13:41 Approved by: Yannick George MD on 04/11/2022 at 13:50
[2022-04-10 15:08] VITALS: BMI 31.6
[2022-04-10 15:54] VITALS: BP 184/91; PULSE 83; RESP 18; TEMP 36.8; O2SAT 99
--- NOTE | 2022-04-10 17:20 | PM.HP.1 ---
History of Present Illness History of Present Illness Date Patient Seen: 04/10/22 Time Patient Seen: 17:20 Chief complaint: CHEST PAIN Narrative: This is an 81-year-old male with a past medical history of hypertension and hyperlipidemia presented to the emergency room with chest pain. Step brief episode of exertional chest pain which felt like more of a pressure about a week ago. This lasted about 20 minutes and then resolved. He had another episode this morning with moderate exertion and lifting that lasted a couple of hours and was on and off. Each episode lasted about 15 minutes and he had about 5 of them, each time with exertion. He describes the sensation of pressure and heaviness in the substernal area of his chest. There is no radiation into the arm or neck, and he denies any palpitations, shortness of breath, nausea, vomiting, abdominal pain, dizziness, or recent lower extremity edema or orthopnea. During these episodes he did note that he was more sweaty than usual for the amount of activity he performed. He denies any recent fever, chills, cough, dysuria, or urinary frequency. Emergency room, he was mildly hypertensive but the remainder of his vital signs were unremarkable. Laboratory evaluation showed an unremarkable CBC though he does have a borderline leukocytosis with WBC of 11.3 hemoglobin of 12.9. Creatinine was mildly elevated at 1.3 consistent with prior lab values. Glucose was 149. Troponins were negative x2 in the emergency room. EKG showed a sinus rhythm with a right bundle branch block consistent with prior tracings. Chest x-ray was unremarkable with no acute cardiopulmonary findings. HEART score is 6. Patient was admitted for further risk stratification and ACS rule out for his chest pain. 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, lumbar region RBBB (right bundle branch block) Spinal stenosis of lumbar region Surgical History History of corneal transplant History of ear surgery Hx of appendectomy Hx of arthroscopy of shoulder Hx of bilateral inguinal hernia repair Hx of tonsillectomy Family & Social History Family History (Updated 04/10/22 @ 17:23 by Umair Jones DO) Father Bone cancer CAD (coronary artery disease) Mother No pertinent past medical history Social History: household members spouse Safety & Behavioral: Feels Safe in Current Yes Environment Been Physically Hurt or No Threatened By a Person Tobacco & Substance use: Tobacco type cigarettes Smoking Status Never smoker alcohol intake current alcohol intake frequency a few times a month Substance Use Type does not use Meds Home Medications and Allergies Home Medications Medication Instructions Recorded Confirmed Type multivitamin 1 cap PO QAM ##0 11/07/10 04/10/22 History losartan 50 mg-hydrochlorothiazide 1 tab PO Q DAY #90 tabs 09/21/18 04/10/22 Rx 12.5 mg tablet tamsulosin 0.4 mg capsule (Flomax) 0.4 mg PO QDAY #90 caps 11/17/18 04/10/22 Rx Allergies Allergy/AdvReac Type Severity Reaction Status Date / Time No Known Drug Allergies Allergy Verified 08/24/18 13:16 Review of Systems Review of Systems Narrative: All other systems reviewed with the patient and are negative unless otherwise stated. Exam Vital Signs (past 8 hours): - 04/10/22 10:00 04/10/22 13:05 04/10/22 14:01 Temperature 96.6 F L 98.4 F Pulse Rate 66 66 Respiratory Rate 18 24 Blood Pressure 172/77 H Pulse Oximetry 97 97 Oxygen Delivery Method Room Air 04/10/22 14:30 04/10/22 15:54 04/10/22 15:54 Temperature 98.3 F Pulse Rate 55 L 83 Respiratory Rate 17 18 Blood Pressure 184/91 H Pulse Oximetry 96 99 99 Oxygen Delivery Method Room Air 04/10/22 15:08 Temperature Pulse Rate Respiratory Rate Blood Pressure Pulse Oximetry Oxygen Delivery Method Room Air Oxygen Delivery Method Room Air Narrative Exam Narrative: General:? Patient is well developed and well nourished, in no distress at this time. HEENT:? Normocephalic, atraumatic, extraocular muscles intact, oral pharynx is clear and mucous membranes are moist. Neck: supple and symmetric, trachea is midline, no cervical adenopathy. Negative for JVD Chest:? Normal AP diameter and contour without kyphoscoliosis, no tachypnea, equal chest rise bilaterally. Lungs:? CTA b/l no wheezing rhonchi or rales. Cardio:?RRR no m/r/g. Abdomen: S NT ND. No CVA tenderness. Musculoskeletal:? Muscle strength and tone are equal within normal limits, no deformity. Extremities: No edema or joint effusions. No cyanosis or clubbing. Skin:? Pale,? Warm to touch,dry and intact without rashes, ulcerations or petechiae.? Neuro:? Alert and orientated x3,? sensation to touch intact in all extremities, no gross deficits noted of cranial nerves. Psych:? Patient has a well-kept appearance, appropriate affect, mental status attitude thought context and judgment are appropriate for age. Objective ECG Impression: Sinus bradycardia with sinus arrhythmia Right bundle branch block No acute ischemia as interpreted by me. RBBB is old. Labs Result Diagrams: 04/10/22 10:10 04/10/22 10:10 Labs: Laboratory Results - last 24 hr 04/10/22 04/10/22 04/10/22 10:10 10:10 13:00 WBC 11.3 H RBC 4.48 L Hgb 12.9 L Hct 39.0 L MCV 87.0 MCH 28.8 MCHC 33.1 RDW 14.2 Plt Count 178 Neut % (Auto) 81.7 H Lymph % (Auto) 10.8 L [place] % (Auto) 6.3 Eos % (Auto) 0.5 L Baso % (Auto) 0.7 Neut # (Auto) 9200 H Lymph # (Auto) 1200 [place] # (Auto) 700 Eos # (Auto) 100 Baso # (Auto) 100 Sodium 139 Potassium 4.8 Chloride 104 Carbon Dioxide 26 BUN 25 H Creatinine 1.30 H Estimated GFR 56 L BUN/Creatinine Ratio 19.2 Glucose 149 H Calcium 8.3 L Magnesium 2.2 Total Bilirubin 0.5 AST 19 ALT 24 Alkaline Phosphatase 95 Total Creatine Kinase 56 CK-MB (CK-2) TNP CK-MB (CK-2) Rel Index TNP Troponin I < 0.012 < 0.012 Total Protein 7.5 Albumin 4.0 Globulin 3.5 Albumin/Globulin Ratio 1.1 Lipase 128 SARS-CoV-2 (PCR) 04/10/22 14:02 WBC RBC Hgb Hct MCV MCH MCHC RDW Plt Count Neut % (Auto) Lymph % (Auto) [place] % (Auto) Eos % (Auto) Baso % (Auto) Neut # (Auto) Lymph # (Auto) [place] # (Auto) Eos # (Auto) Baso # (Auto) Sodium Potassium Chloride Carbon Dioxide BUN Creatinine Estimated GFR BUN/Creatinine Ratio Glucose Calcium Magnesium Total Bilirubin AST ALT Alkaline Phosphatase Total Creatine Kinase CK-MB (CK-2) CK-MB (CK-2) Rel Index Troponin I Total Protein Albumin Globulin Albumin/Globulin Ratio Lipase SARS-CoV-2 (PCR) Negative Assessment & Plan Assessment & Plan narrative: 1. Chest pain - concerning for anginal symptoms, HEART score of 6, admitted for further risk stratification, another 8 hour troponin to r/o ACS, and cardiac stress testing. - nuclear testing ordered given his RBBB. - telemetry monitoring - check A1c, TSH, lipids in the AM - asa statin therapy for now pending stress testing. 2. HTN - continue home medications 3. HLD - will check lipid panel, start statin 4. BPH - continue home tamsulosin 5. probable CKD stage III - suspect CKD stage III, but only two lab values in our system. PCP follow up recommended. Code: Full, surrogate decision maker is his spouse DVT: low risk, patient ambulatory, short stay probable I have utilized all available immediate resources to obtain, update, or review the patient's current medications. Dispo: observation, pending stress testing, will discharge home if negative. COVID-19 COVID-19 status: Negative Time Spent With Patient Critical Care time: I spent a total of [] minutes of critical care time on this patient's care today; this time is exclusive of procedural time. Quality MIPS - Admit I confirm the patient?s Advance Care Plan is present, Code status is documented, Surrogate decision maker is in patient?s record [If Yes, STOP here]: Yes
[2022-04-10] MEDS: LOSARTAN 25 MG TABLET PO (17:43)
--- NOTE | 2022-04-10 17:50 | PC.NURSE ---
Admit Note Patient to room 228 at 1500 via wheelchair. Independent in room, denies chest pain. Instructed to call if experiences any chest pain and acknowledged understanding. Oriented to room and to call light/bed/tv controls. Call light within reach. Second part of stress test tomorrow, NPO at midnight. SR with BBB in the 70s.
[2022-04-10 18:56] LABS: Troponin I 0.013 ng/mL (0.01-0.034)
[2022-04-10 20:00] VITALS: BP 160/80; PULSE 69; RESP 18; TEMP 36.7; O2SAT 95
[2022-04-11] VITALS (8 sets, daily range): BP systolic 127–177; BP diastolic 64–89; PULSE 65–88; RESP 16–18; TEMP 36.2–36.6; O2SAT 97–99
[2022-04-11 06:10] LABS: Add Manual Diff / Slide Review NO; Basophils Absolute Auto 100 /uL (0-100); Basophils Percent Auto 0.7 % (0-2); Eosinophils Absolute Auto 200 /uL (0-450); Eosinophils Percent Auto 1.7 % (2-4); Hematocrit 38.1 % (41-53); Hemoglobin 12.7 g/dL (13.5-17.5); Lymphocytes Absolute Auto 2200 /uL (1100-4500); Lymphocytes Percent Auto 23.1 % (25-40); Mean Corpuscular HGB Conc 33.2 % (30-36); Mean Corpuscular Hemoglobin 28.7 PG (26-34); Mean Corpuscular Volume 86.4 fL (80-100); Monocytes Absolute Auto 900 /uL (0-900); Monocytes Percent Auto 9.5 % (3-14); Neutrophils Absolute Auto 6200 /uL (1500-7000); Platelet Count 171 X10^3/uL (150-400); Red Blood Cell Count 4.41 X10^6/uL (4.5-5.9); Red Cell Distribution Width 14.4 % (11.6-14.8); White Blood Cell Count 9.5 X10^3/uL (4.5-11.0)
[2022-04-11 06:22] LABS: BUN Creatinine Ratio 20.3 (6-22); Blood Urea Nitrogen 24 mg/dL (9-20); Calcium 8.1 mg/dL (8.4-10.2); Carbon Dioxide 27 mmol/L (22-32); Chloride 107 mmol/L (98-107); Cholesterol 132 mg/dL (140-199); Estimated Glomerular Filt Rate > 60 mL/min (>60); Glucose 101 mg/dL (80-110); HDL Cholesterol 33 mg/dL (40-60); HEMOLYSIS < 15 (0-50); LDL Cholesterol Calculated 81 mg/dL (<100); Magnesium 2.1 mg/dL (1.6-2.3); Potassium 4.4 mmol/L (3.4-5.1); Sodium 140 mmol/L (137-145); Triglycerides 89 mg/dL (35-150)
[2022-04-11 06:26] LABS: Hemoglobin A1C% w Est Avg Glu 5.6 % (4.0-6.0)
[2022-04-11 06:51] LABS: TSH w/ Reflex to FT4 0.98 uIU/mL (0.47-4.68)
[2022-04-11] MEDS: TAMSULOSIN 0.4 MG CAPSULE PO (08:13)
[2022-04-11] MEDS: LOSARTAN 50 MG TABLET PO (08:13)
[2022-04-11] MEDS: hydroCHLOROthiazide 25 MG TABLET 12.5 MG PO (08:14)
--- NOTE | 2022-04-11 13:18 | P.DS_ITS ---
History of Present Illness History of Present Illness Date Patient Seen: 04/11/22 Chief complaint: CHEST PAIN Narrative: This is an 81-year-old male with a past medical history of hypertension and hyperlipidemia presented to the emergency room with chest pain. Step brief episode of exertional chest pain which felt like more of a pressure about a week ago. This lasted about 20 minutes and then resolved. He had another episode this morning with moderate exertion and lifting that lasted a couple of hours and was on and off. Each episode lasted about 15 minutes and he had about 5 of them, each time with exertion. He describes the sensation of pressure and heaviness in the substernal area of his chest. There is no radiation into the arm or neck, and he denies any palpitations, shortness of breath, nausea, vomiting, abdominal pain, dizziness, or recent lower extremity edema or orthopnea. During these episodes he did note that he was more sweaty than usual for the amount of activity he performed. He denies any recent fever, chills, cough, dysuria, or urinary frequency. Emergency room, he was mildly hypertensive but the remainder of his vital signs were unremarkable. Laboratory evaluation showed an unremarkable CBC though he does have a borderline leukocytosis with WBC of 11.3 hemoglobin of 12.9. Creatinine was mildly elevated at 1.3 consistent with prior lab values. Glucose was 149. Troponins were negative x2 in the emergency room. EKG showed a sinus rhythm with a right bundle branch block consistent with prior tracings. Chest x-ray was unremarkable with no acute cardiopulmonary findings. HEART score is 6. Patient was admitted for further risk stratification and ACS rule out for his chest pain. Discharge Providers Provider Date of admission: 04/10/22 15:00 Discharge Date: 04/11/22 Primary care physician: Lux Ivan MD Discharge provider: Umair Jones DO Summary Hospital Course Discharge Diagnosis: 1. Unstable Angina 2. HTN 3. HLD 4. BPH 5. possible CKD Hospital Course: This is an 81-year-old male who was admitted for further evaluation of typical chest pain. His HEART score was 6 based on presentation. Nuclear stress testing was performed for further risk stratification which was deemed highly abnormal. He will be transferred for [facility] per cardiology recommendations. He was initially hypertensive but improved with home mediations of HCTZ and lisinopril. TSH was 0.98, A1c 5.6%, LDL was 81. He was given asa and statin therapy on admission. Creatinine was 1.30 on admission, improved to 1.18 and baseline labs are not known at this time. He will be NPO and started heparin infusion per cardiology recommendations on discharge. Code: Full, surrogate decision maker is his spouse Care plan was discussed with patient and spouse and was in agreement with plan for transfer for [facility]. Time Spent with Patient Time spent: Greater than 30 minutes Exam Vital Signs (past 8 hours): - 04/11/22 07:59 04/11/22 08:00 04/11/22 08:13 Temperature 97.2 F L 97.2 F L Pulse Rate 69 69 70 Respiratory Rate 18 18 Blood Pressure 177/89 H 177/89 H 177/89 H Pulse Oximetry 98 98 Oxygen Delivery Method Oxygen Flow Rate 0 0 04/11/22 07:00 04/11/22 07:00 04/11/22 12:20 Temperature Pulse Rate Respiratory Rate Blood Pressure Pulse Oximetry 98 99 Oxygen Delivery Method Room Air Room Air Nasal Cannula Oxygen Flow Rate 2 04/11/22 12:30 Temperature 97.8 F Pulse Rate 88 Respiratory Rate 16 Blood Pressure 127/64 Pulse Oximetry 99 Oxygen Delivery Method Oxygen Flow Rate 2 Oxygen Delivery Method Nasal Cannula Oxygen Flow Rate 2 Narrative Exam Narrative: General:? Patient is well developed and well nourished, in no distress at this time. HEENT:? Normocephalic, atraumatic, extraocular muscles intact, oral pharynx is clear and mucous membranes are moist. Neck: supple and symmetric, trachea is midline, no cervical adenopathy. Negative for JVD Chest:? Normal AP diameter and contour without kyphoscoliosis, no tachypnea, equal chest rise bilaterally. Lungs:? CTA b/l no wheezing rhonchi or rales. Cardio:?RRR no m/r/g. Abdomen: S NT ND. No CVA tenderness. Musculoskeletal:? Muscle strength and tone are equal within normal limits, no deformity. Extremities: No edema or joint effusions. No cyanosis or clubbing. Skin:? Pale,? Warm to touch,dry and intact without rashes, ulcerations or petechiae.? Neuro:? Alert and orientated x3,? sensation to touch intact in all extremities, no gross deficits noted of cranial nerves. Psych:? Patient has a well-kept appearance, appropriate affect, mental status attitude thought context and judgment are appropriate for age. Objective Labs Result Diagrams: 04/11/22 05:41 04/11/22 05:41 Labs: Laboratory Results - last 24 hr 04/10/22 04/10/22 04/10/22 13:00 14:02 16:03 WBC RBC Hgb Hct MCV MCH MCHC RDW Plt Count Neut % (Auto) Lymph % (Auto) [place] % (Auto) Eos % (Auto) Baso % (Auto) Neut # (Auto) Lymph # (Auto) [place] # (Auto) Eos # (Auto) Baso # (Auto) Sodium Potassium Chloride Carbon Dioxide BUN Creatinine Estimated GFR BUN/Creatinine Ratio Glucose Hemoglobin A1c Calcium Magnesium Troponin I < 0.012 Triglycerides Cholesterol LDL Cholesterol, Calc HDL Cholesterol TSH Nasal Screen MRSA (PCR) Negative for mrsa SARS-CoV-2 (PCR) Negative 04/10/22 04/11/22 04/11/22 18:27 05:41 05:41 WBC 9.5 RBC 4.41 L Hgb 12.7 L Hct 38.1 L MCV 86.4 MCH 28.7 MCHC 33.2 RDW 14.4 Plt Count 171 Neut % (Auto) 65.0 Lymph % (Auto) 23.1 L [place] % (Auto) 9.5 Eos % (Auto) 1.7 L Baso % (Auto) 0.7 Neut # (Auto) 6200 Lymph # (Auto) 2200 [place] # (Auto) 900 Eos # (Auto) 200 Baso # (Auto) 100 Sodium 140 Potassium 4.4 Chloride 107 Carbon Dioxide 27 BUN 24 H Creatinine 1.18 Estimated GFR > 60 BUN/Creatinine Ratio 20.3 Glucose 101 Hemoglobin A1c Calcium 8.1 L Magnesium 2.1 Troponin I 0.013 Triglycerides 89 Cholesterol 132 L LDL Cholesterol, Calc 81 HDL Cholesterol 33 L TSH Nasal Screen MRSA (PCR) SARS-CoV-2 (PCR) 04/11/22 04/11/22 05:41 05:41 WBC RBC Hgb Hct MCV MCH MCHC RDW Plt Count Neut % (Auto) Lymph % (Auto) [place] % (Auto) Eos % (Auto) Baso % (Auto) Neut # (Auto) Lymph # (Auto) [place] # (Auto) Eos # (Auto) Baso # (Auto) Sodium Potassium Chloride Carbon Dioxide BUN Creatinine Estimated GFR BUN/Creatinine Ratio Glucose Hemoglobin A1c 5.6 Calcium Magnesium Troponin I Triglycerides Cholesterol LDL Cholesterol, Calc HDL Cholesterol TSH 0.98 Nasal Screen MRSA (PCR) SARS-CoV-2 (PCR) PFSH Medical History Eczema HTN (hypertension) LBBB (left bundle branch block) Nocturia 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, lumbar region RBBB (right bundle branch block) Spinal stenosis of lumbar region Surgical History History of corneal transplant History of ear surgery Hx of appendectomy Hx of arthroscopy of shoulder Hx of bilateral inguinal hernia repair Hx of tonsillectomy Family History (Updated 04/10/22 @ 17:23 by Umair Jones DO) Father Bone cancer CAD (coronary artery disease) Mother No pertinent past medical history Social History marital status: household members: spouse occupational status: previously employed Smoking Status: Never smoker alcohol intake: current substance use type: does not use Discharge Plan Discharge Plan Disposition: Xfer Acute Care Hospital Discharge orders & Medications Follow up/Referrals: Lux Ivan MD [Primary Care Provider] - Discharge Data Primary Care Provider: Lux Ivan Attending Provider: Umair Jones
[2022-04-11] MEDS: HEPARIN DRIP 25,000 UNIT/500 ML IV.SOLN 20 UNIT IV (14:04)
[2022-04-11 14:35] LABS: INR 1.1 (0.9-1.3); Prothrombin Time 12.2 SECONDS (10.1-12.7)
[2022-04-11 14:38] LABS: PTT Partial Thromboplastin Tim 32 SECONDS (26-36)
== END 2022-04-11 14:45 | disposition short-term general hospital (02) | DRG 311 ==
LOC: ED 13:13 → AC 15:01 → ICU 15:16
PROVIDERS: Admitting Provider Internal Medicine; Emergency Provider Emergency Medicine; PCP Family Medicine; Visit Provider Internal Medicine
DX: I20.0 Unstable angina (principal); N18.30 Chronic kidney disease, stage 3 unspecified; R94.39 Abnormal result of other cardiovascular function study; E78.5 Hyperlipidemia, unspecified; N40.0 Benign prostatic hyperplasia without lower urinary tract symptoms; I12.9 Hypertensive chronic kidney disease with stage 1 through stage 4 chronic kidney disease, or unspecified chronic kidney disease; Z20.822 Contact with and (suspected) exposure to COVID-19
CPT/HCPCS: 36415; 71045; 78451; 80048; 80053; 80061; 82550; 82962; 83036; 83690; 83735; 84443; 84484; 85025; 85610; 85730; 87635; 87797; 93005; 93010; 93017; 99284; C9803; G0378; A9502; J1644